=== PATIENT | female | born 1970 | race Caucasian/White ===

== ENCOUNTER 2022-04-15 07:30 | Outpatient (REF) | payer OTHER, SELFPAY ==
--- NOTE | ~2022-04-15 | MR_ITS ---
EXAMINATION: MR ANGIOGRAPHY BRAIN WITHOUT CONTRAST CLINICAL INFORMATION: Anesthesia of the skin. COMPARISON: Brain MRI 10/27/2019. TECHNIQUE: Three-dimensional [id number] MR angiogram of the head was performed without contrast. MIP reconstructions were generated in multiple orientations at the acquisition workstation. Multiple three-dimensional surface rendered images and maximum intensity projection images were generated on a dedicated 3-D lab workstation. Arterial stenoses are measured in accordance with NASCET criteria or similar method if applicable. FINDINGS: Intracranial internal carotid arteries are normal. Intradural vertebral artery segments and basilar artery are normal. Visualized portions of the anterior, middle, and posterior cerebral artery complexes are normal. No intracranial large vessel occlusion. No evidence of aneurysm or high flow vascular lesion. MR/MR angio head wo con IMPRESSION: Normal MR angiogram of the head.
== END 2022-04-15 07:31 | disposition home or self-care (01) ==
LOC: HO.MRI 07:30
PROVIDERS: Visit Provider Psychiatry & Neurology Neurology
DX: R20.0 Anesthesia of skin (principal); R20.2 Paresthesia of skin; I72.9 Aneurysm of unspecified site
CPT/HCPCS: 70544

== ENCOUNTER 2022-07-13 08:02 | Outpatient (REF) | payer OTHER, SELFPAY | END 2022-07-13 08:03 | disposition home or self-care (01) | LOC: HO.MDS 08:02 | PROVIDERS: Visit Provider Psychiatry & Neurology Neurology | DX: D50.9 Iron deficiency anemia, unspecified (principal); G25.81 Restless legs syndrome | CPT/HCPCS: 96365; J1756 ==

== ENCOUNTER 2022-07-20 07:35 | Outpatient (REF) | payer OTHER, SELFPAY | END 2022-07-20 07:36 | disposition home or self-care (01) | LOC: HO.MDS 07:35 | PROVIDERS: Visit Provider Psychiatry & Neurology Neurology | DX: D50.9 Iron deficiency anemia, unspecified (principal); G25.81 Restless legs syndrome | CPT/HCPCS: 96365; J1756 ==

== ENCOUNTER 2022-07-27 07:36 | Outpatient (REF) | payer OTHER, SELFPAY | END 2022-07-27 07:37 | disposition home or self-care (01) | LOC: HO.MDS 07:36 | PROVIDERS: Visit Provider Psychiatry & Neurology Neurology | DX: D50.9 Iron deficiency anemia, unspecified (principal); G25.81 Restless legs syndrome | CPT/HCPCS: 96365; J1756 ==

== ENCOUNTER 2022-08-03 07:38 | Outpatient (REF) | payer OTHER, SELFPAY | END 2022-08-03 07:39 | disposition home or self-care (01) | LOC: HO.MDS 07:38 | PROVIDERS: Visit Provider Psychiatry & Neurology Neurology | DX: D50.9 Iron deficiency anemia, unspecified (principal); G25.81 Restless legs syndrome | CPT/HCPCS: 96365; J1756 ==

== ENCOUNTER 2022-08-10 07:33 | Outpatient (REF) | payer OTHER, SELFPAY | END 2022-08-10 07:34 | disposition home or self-care (01) | LOC: HO.MDS 07:33 | PROVIDERS: Visit Provider Psychiatry & Neurology Neurology | DX: D50.9 Iron deficiency anemia, unspecified (principal); G25.81 Restless legs syndrome | CPT/HCPCS: 96365; J1756 ==

== ENCOUNTER → 2022-11-17 16:01 | Outpatient (REF) | payer OTHER, SELFPAY | LOC: HO.SL 16:01 | PROVIDERS: PCP Internal Medicine; Visit Provider Psychiatry & Neurology Neurology | DX: Z13.89 Encounter for screening for other disorder (principal) ==

== ENCOUNTER → 2022-12-28 09:10 | Outpatient (REF) | payer OTHER, SELFPAY | LOC: HO.SL 09:10 | PROVIDERS: PCP Internal Medicine; Visit Provider Psychiatry & Neurology Neurology | DX: Z13.89 Encounter for screening for other disorder (principal) ==

== ENCOUNTER 2025-06-10 07:21 | Outpatient (AMB) | payer OTHER, SELFPAY ==
--- NOTE | 2025-06-10 07:23 | MHC.OFFVIS ---
Vital Signs 06/10/25 07:32 Height 5 ft 5 in Weight 104 lb 4 oz BMI 17.3 BP 110/72 Blood Pressure Location Rt brachial Position Sitting Pulse 72 Pulse Source Pulse Oximeter Pulse Oximetry (%) 99 Oxygen Delivery Method Room Air Intake Visit Reasons: New leg pain/discomfort; RLS and insomina continue Intake Note: Leg pain and discomfort, RLS and follow up Insomnia last seen 2021 [employer] Required: No Accompanied by: Self / Same As Patient Allergies No Known Allergies Allergy (Verified 06/10/25 07:24) Medication List - Last Reconciled 06/10/25 by Michelle Swan MD acetaminophen (Tylenol Extra Strength) 500 mg PO Q6H PRN aspirin (Adult Low Dose Aspirin) 81 mg PO DAILY bimatoprost 0.03% (Latisse) 1 appl topical .[id number] biotin 500 mg PO DAILY cholecalciferol (vitamin D3) 400 mcg PO DAILY gabapentin 100 mg PO BID 90 days gabapentin 900 mg (3 x 300 mg) PO DAILY 90 days hydroxyzine HCl 25 mg PO BEDTIME 90 days melatonin 3 mg PO BEDTIME PRN multivitamin (Daily Multi-Vitamin tablet) 1 tab PO DAILY nfpepeni-nrtj-igihx-oreg-capry 100 mg-150 mg- 50 mg-150 mg 1,500 caps PO DAILY zinc acetate (Galzin) 50 mg PO DAILY HPI Comments Details: 54 y/o female comes for new symptoms of gen leg pain .she had a recent left shoulder surgery - impingement, rotator cuff and biceps tendon , bone spur . she is feeling better. she is restricted from Tennis for 1 year. she reports generalized leg pain - severe . It started in summer- this was different from RLS as she had pain when active. It is different from RLS, Bilateral - can be in different sites in the legs - she has tried activity which did not help. CT abdomen was normal Lumbar MRI- arthritis ( [facility]) she saw vascular and USG was negative . Urologist - for hematuria - cystoscopy [employer] Developer- small cyst left ovary , fibroid. she still gets her periods - irregular , she was tested for menopause - her hormones were normal . But she had heavy bleeding - in between her periods . Labs from February 2025- normal ESR CRP CBC CMP Hg was normal 12.7 History from 2021- 51y/o female calls for follow up of restless legs . she is on gabapentin 100mg bid -tid and 600mg qhs but still feels she tosses and turns during the night and has trouble staying asleep. she was given long acting gabapentin but was not approved by her insurance. she also took some iron supplements for 1 year and has increased her iron intake. About 7 months ago she woke up with left face tingling and numbness - eye to her chin and decreased hearing. She assume it was allergies but was very severe. SHe was seen by ENT and was normal. SHe was given prednisone course and it helped. The tingling and numbness have improved. No facial asymmetry. No headaches. MRI brain was normal - [facility]. 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 Usually falls asleep at 10pm she uses ambien sparingly .. [facility] Medical History (Updated 06/10/25 @ 08:25 by Michelle Swan MD) Leg pain, bilateral Polymyalgia Generalized pruritus Hypersomnia Snoring Insomnia Numbness and tingling of left side of face Insomnia Periodic limb movements of sleep Allergic rhinitis Family History Father Heart disease HTN (hypertension) COPD (chronic obstructive pulmonary disease) Mother Kidney disease Thyroid disease HTN (hypertension) Peripheral artery disease Social History Alcohol intake: current Patient Tobacco Use Status: Never used Tobacco Physical Exam Vital Signs: Last Vital Signs Pulse 72 06/10/25 07:32 BP 110/72 06/10/25 07:32 Pulse Ox 99 06/10/25 07:32 Oxygen Delivery Method Room Air 06/10/25 07:32 BMI result Body Mass Index 17.3 Const General: cooperative, comfortable and no acute distress Nutritional Appearance: average body habitus Orientation/consciousness: patient oriented x3 HEENT Head: Yes normal to inspection and Yes normocephalic Face and sinus: Yes normal facial exam Eyes Pupils: Equal, round and reactive pupils present Neck Other: tight muscles trapezius, levator Neuro Other: left shoulder limited range of motion post surgery General: patient oriented x3 and gait normal Cranial nerves: Yes CN's II-XII intact bilaterally, Yes Facial sensation intact/muscles of mastication intact, Yes Equal, round and reactive pupils present, Yes Bilaterally intact EOM present and Yes Nystagmus not present Gait exam (Neuro): Normal gait present Motor exam (neuro): 5/5 motor strength present throughout Deep tendon reflexes (DTR's): Right triceps reflex intensity grade: 2+, Left triceps reflex intensity grade: 2+, Rt Biceps (C5, C6): 2+, Left biceps reflex intensity grade: 2+, Right brachioradialis reflex intensity grade: 2+, Left brachioradialis reflex intensity grade: 2+, Right patellar reflex intensity grade: 2+ and Left patellar reflex intensity grade: 2+ Coordination: [id number] test normal Assessment & Plan Assessment & Plan (1) Leg pain, bilateral: Code(s): M79.604 - Pain in right leg; M79.605 - Pain in left leg Category: Medical (2) Insomnia: Code(s): G47.00 - Insomnia, unspecified Category: Medical (3) Periodic limb movements of sleep: Code(s): G47.61 - Periodic limb movement disorder Category: Medical (4) Restless legs syndrome (RLS): Code(s): G25.81 - Restless legs syndrome Category: Medical Plan ESR CRP normal - rules out polymyalgia rheumatica FH/O polymyalgia Rheumatica Gabapenitn 100mg bid gabapentin 900mg qhs Take extra gabpentin as needed will check her ferritin B12 tsh Vit D levels [place] Consider Rheumatology eval F/u gynec for possible perimenopausal symptoms Magnesium glycinate 400g qhs Orders: Orders TSH reflex Free T4 Today M35.3 - Polymyalgia rheumatica Vitamin D 25-OH (D2 and D3) Today M35.3 - Polymyalgia rheumatica Ferritin Today M35.3 - Polymyalgia rheumatica [place] Reflex Titer and Pattern Today M35.3 - Polymyalgia rheumatica Vitamin B12 and Folate Today M35.3 - Polymyalgia rheumatica Coding Level of Care Code Est Pt Level 4 (87754) Complex EM visit Add On G2211 Diagnoses Leg pain, bilateral M79.604; M79.605 Insomnia G47.00 Periodic limb movements of sleep G47.61 Restless legs syndrome (RLS) G25.81
[2025-06-10 07:32] VITALS: BP 110/72; PULSE 72; O2SAT 99; BMI 17.3
--- OUTSIDE RECORDS SUMMARY | 2025-06-10 07:46 | XMS_ITS | Data Portability ---
Author Organization [facility], [facility] Address [address] [place] [address] Care Team Providers Care Regional Trainer Name Role Phone VALENCIA ALDANA Primary Care Provider Assessment Encounter Date Assessment Date Assessment LastModified by Organization Details LastModified Time 06/12/2024 06/12/2024 A:Pt PROM scapti on decreased secondary to increased end range px, soreness c ER/IR passive stretches. No c/o increased px at the end of session. P:Continue with POC, progress as tolerated. sshamlall Not available 06/12/2024 17:19:10 07/05/2024 07/05/2024 A:Pt PROM improv ed significantly c decreased end range px. She is with functional improvements c available range. P:Continue with POC, progress as tolerated. sshamlall Not available 07/05/2024 17:30:55 07/16/2024 07/16/2024 Procedure/Date:l eft shoulder biceps tenodesis 05/29/2024 History: Doing well, no complications, still noting pain Exam: Wound benign, motion full Radiographs: none Clinical Status: Doing as expected postoperatively Work Status/Plan:not applicable Physical Therapy Status: home program at this point Medication Prescriptions: [none given] Plan/Follow up:[facility] weeks [facility] speech recognition first aid trainer software was used to create portions of this document. An attempt at proofreading has been made to minimize errors. Please call for corrections. mela Not available 07/16/2024 10:51:42 09/07/2024 09/07/2024 Dx:status post l eft shoulder decompression 05/29/2024 Interval History:so having pain with use, slow progress. SocHx: nonsmoker, nondrinker Past Medical/Surgical History/Meds/Allerg ies reviewed and charted ROS: negative Physical Exam: afebrile, vital signs stable, in no apparent distress, oriented to person/place/time. Gait symmetric. Skin intact without erythema. Heart RRR Lungs: clear Abdomen soft, nontender. leftSHOULDER: no redness, warmth, deformity. Range of motion full in all planes with no stiffness. Strength 5/5 all muscle groups. Apprehension negative. Impingement sign positive. Acromioclavicular joint nontender without irritability with cross body adduction. Neurovascular Exam wnl. Contralateral SHOULDER: no redness, warmth, deformity. Range of motion full in all planes with no stiffnes. Strength 5/5 all muscle groups. Apprehension negative. Impingement sign negative. Acromioclavicular joint nontender without irritability to cross body adduction. Neurovascular Exam wnl. New Studies: none Impression:status post decompression left shoulder with residual pain Plan: 1.patient reassured, continue home stretching, she did have a low-grade partial-thickness bursal tear that may need to be dealt with if she does not fully turn the corner, follow-up with me in 6-8 weeks, continue stretching, hold on strengthening [facility] speech recognition first aid trainer software was used to create portions of this document. An attempt at proofreading has been made to minimize errors. Please call for corrections. Not available 09/07/2024 10:49:41 10/29/2024 10/29/2024 Dx:Left shoulder partial thickness rotator cuff tear Interval History:The patient returns, MRI shows no definite rotator cuff tear, certainly no high-grade progression, no residual spurring. She still quite symptomatic. Now 5 months out from surgery. SocHx: nonsmoker, nondrinker Past Medical/Surgical History/Meds/Allerg ies reviewed and charted ROS: negative Physical Exam: afebrile, vital signs stable, in no apparent distress, oriented to person/place/time. Gait symmetric. Skin intact without erythema. Heart RRR Lungs: clear Abdomen soft, nontender. LeftSHOULDER: no redness, warmth, deformity. Range of motion full in all planes with no stiffness. Strength 5/5 all muscle groups. Apprehension negative. Impingement sign Positive. Acromioclavicular joint nontender without irritability with cross body adduction. Neurovascular Exam wnl. Contralateral SHOULDER: no redness, warmth, deformity. Range of motion full in all planes with no stiffnes. Strength 5/5 all muscle groups. Apprehension negative. Impingement sign negative. Acromioclavicular joint nontender without irritability to cross body adduction. Neurovascular Exam wnl. New Studies: MRI images reviewed as above Impression:Left shoulder persistently symptomatic partial thickness rotator cuff tear documented that arthroscopy Plan: 1.Based upon ongoing symptomatology, presence of a partial thickness tear, bursal sided, recommended arthroscopy with cuff debridement and repair. I told her that most patients who undergo decompression with a low-grade tear and a large spur experience stabilization of the tendon and recovery but in some cases pain persists. Follow-up in 3 months though invited her to call and schedule arthroscopy at her discretion. [facility] speech recognition first aid trainer software was used to create portions of this document. An attempt at proofreading has been made to minimize errors. Please call for corrections. Not available 10/29/2024 11:00:41 Plan of Treatment Reminders Order Date Submit Date Provider Last Modified By Organization Details Last Modified Time Details Appointments None record ed. Lab None record ed. Referral None record ed. Procedures None record ed. Surgeries None record ed. Imaging None record ed. Medication Orders None record ed. Patient TargetsNo targets recorded. Patient InstructionsNo instructions recorded. Reason for Referral None Reported. Results Created Date Observation Date Name Description Value Unit Range Abnormal Flag Note LastModifiedBy Organization Detail LastModifiedTime 06/06/20 24 06/06/2024 rell [place], 2 or more view http:/ [email or web address] ?Encry pted=s hAaTro YD8dLq bEUv6g %2BXZw aYqtaq 0bqfl% 2Fg9IQ a4ajBk vP9nXo QUaueC m3YtLR FvZlgJ JJ8mAn HZtai3 0k8020 AC0Kqa HSHV6a lKiQtr F INTERFACE [facility] [address], [place], [address], 06/06/2024 08:38:29 06/06/20 24 06/06/2024 XR, rell [facility], 2 or more view [email or web address] ?Encry pted=s hAaTro YD8dLq bEUv6g %2BXZw aYqtaq 0bqfl% 2Fg9IQ a4ajBk vP9nXo QUaueC m3YtLR FvZlgJ JJ8mAn HZtai3 3p3029 AC0Kqa HSHV6a lKiQtr MwF INTERFACE [facility] [address], [place], [address], 06/06/2024 08:38:32 10/23/19 25 10/20/2024 MRI, [facility], w/o contr ast [facility] Access ion Number : [id number] Name: Elvie Mcclure basillalito Salcedoa wendi Record Number : [id number] Date of : 1970 Date of Exam: 2024 Referr ing Physic sue: Marcellus Corley [address] [place] [address] Exam: MR Should er (C-) CPT 97256 - Left Room Descri ption: [facility] 3.0T MR Should er (C-) CPT 24063 CLINIC AL INDICA TION: Reason For Exam: Imping ement syndro me of left should er, , S/P LEFT SHLDR DECOMP RESSIO N, CONTIN UE PAIN, WEAKNE SS, EVAL FOR ROTATO R CUFF TEAR Reason For Exam: Imping ement syndro me of left should er, , S/P LEFT SHLDR DECOMP RESSIO N, CONTIN UE PAIN, WEAKNE SS, EVAL FOR ROTATO R CUFF TEAR Standa rd Depart ment Protoc ol TECHNI QUE: MRI of the left should er was perfor med withou t intrav enous contra st. COMPAR LOIDA: 12/30/19 24 FINDIN GS: AC joint: Patimilan t is status post interv al subacr omial decomp ressio n and partia l distal clavic ular resect ion. Trace amount of fluid signal within the subacr omial subdel toid bursa. Rotato r cuff: The supras pinatu s, infras pinatu s, teres minor and subsca pulari s tendon s are intact . Mild thicke johnnie, and interm ediate signal subsca pulari s tendin osis. There is normal muscle bulk. Glenoi d labrum and biceps tendon : On nonart hrogra phic evalua tion there is no eviden ce of displa sandra labral tear or para labral cyst. Biceps tendon is intact and the extra- articu lar segmen t is visual ized within the bicipi faye groove . Articu lar cartil age: Mild diffus e thinni ng of the glenoh umeral articu lar cartil age withou t focal defect . Bone: No eviden ce of fractu re, malali gnment or bone marrow contus ion. IMPRES BRIANA: Interv al subacr omial decomp ressio n. Mild fluid signal within the subacr omial subdel toid bursa which may reflec t underl vera bursit is Subsca pulari s tendin osis No eviden ce of rotato r cuff tear or tendon retrac tion Electr onical ly Signed By: Nils dawson [facility] ([facility]) [address], [place], [address], 10/24/2024 10:15:58 Result Notes Documentation Provider Name and Address Organization Details Recorded Time Mri, Shoulder, W/o Contrast : [facility] Accession Number: [id number] Patient Name: Alecia Mcclure Date of : 1970 Date of Exam: 10-20-2024 Referring Physician: Marcellus Barcenas [address] [place] [address] Exam: MR Shoulder (C-) CPT 87786 - Left Room Description: [facility] 3.0T MR Shoulder (C-) CPT 52063 CLINICAL INDICATION: Reason For Exam: Impingement syndrome of left shoulder, , S/P LEFT SHLDR DECOMPRESSION, CONTINUE PAIN, WEAKNESS, EVAL FOR ROTATOR CUFF TEAR Reason For Exam: Impingement syndrome of left shoulder, , S/P LEFT SHLDR DECOMPRESSION, CONTINUE PAIN, WEAKNESS, EVAL FOR ROTATOR CUFF TEAR Standard Department Protocol TECHNIQUE: MRI of the left shoulder was performed without intravenous contrast. COMPARISON: 12/30/2023 FINDINGS: AC joint: Patient is status post interval subacromial decompression and partial distal clavicular resection. Trace amount of fluid signal within the subacromial subdeltoid bursa. Rotator cuff: The supraspinatus, infraspinatus, teres minor and subscapularis tendons are intact. Mild thickening, and intermediate signal subscapularis tendinosis. There is normal muscle bulk. Glenoid labrum and biceps tendon: On nonarthrographic evaluation there is no evidence of displaced labral tear or para labral cyst. Biceps tendon is intact and the extra-articular segment is visualized within the bicipital groove. Articular cartilage: Mild diffuse thinning of the glenohumeral articular cartilage without focal defect. Bone: No evidence of fracture, malalignment or bone marrow contusion. IMPRESSION: Interval subacromial decompression. Mild fluid signal within the subacromial subdeltoid bursa which may reflect underlying bursitis Subscapularis tendinosis No evidence of rotator cuff tear or tendon retraction Electronically Signed By: Nils HANDLEY [facility] 10/24/2024 10:15:58 Problems Name Problem SNOMED Code Status Onset Date Resolution Date Notes Provider Name and Address Organization Details Recorded Time No complaints 219598707 Active Status : 'I'; Not Available [facility] 4 09:11:51 Problem Notes None recorded. Procedures Surgical History Date Name Laterality Status Provider Name and Address Organization Details Recorded Time 4 52774 Therapeutic Exercise (1:1) completed Melinda Levin, BONING ROOM WORKER [address], [place], [address], [facility] 07/05/2024 15:04:42 4 30973: Manual therapy completed Melinda Levin, BONING ROOM WORKER [address], [place], [address], [facility] 07/05/2024 15:04:42 4 39632 Therapeutic Exercise (1:1) cancelled Melinda Shamlall, BONING ROOM WORKER [address], [place], [address], [facility] 07/01/2024 20:02:21 4 75193: Hot or Cold Pack cancelled Melinda Shamlall, BONING ROOM WORKER [address], [place], [address], [facility] 07/01/2024 20:02:21 4 10984: Manual therapy cancelled Melinda Shamlall, BONING ROOM WORKER [address], [place], [address], [facility] 07/01/2024 20:02:21 4 32761 Therapeutic Exercise (1:1) completed Melinda Shamlall, BONING ROOM WORKER [address], [place], [address], [facility] 06/12/2024 16:27:51 4 15566: Hot or Cold Pack completed Melinda Shamlall, BONING ROOM WORKER [address], [place], [address], [facility] 06/12/2024 17:17:26 4 19279: Manual therapy completed Melinda Shamlall, BONING ROOM WORKER [address], [place], [address], [facility] 06/12/2024 16:27:51 4 81298 Therapeutic Exercise (1:1) completed Verito Knight DPT [address], [place], [address], [facility] 06/07/2024 13:07:10 4 40014: Hot or Cold Pack completed Verito Knight DPT [address], [place], [address], [facility] 06/07/2024 13:07:10 4 52204: Manual therapy completed Verito Knight DPT [address], [place], [address], [facility] 06/07/2024 13:07:10 4 31198 Therapeutic Exercise (1:1) completed Verito Knight DPT [address], [place], [address], [facility] 06/05/2024 13:57:23 4 91768: Hot or Cold Pack completed Verito Knight DPT [address], [place], [address], [facility] 06/05/2024 13:57:45 4 58259: Manual therapy completed Verito Knight DPT [address], [place], [address], [facility] 06/05/2024 13:59:28 4 08108 Therapeutic Exercise (1:1) completed Verito Knight DPT [address], [place], [address], [facility] 06/01/2024 13:46:43 4 75615: Low complexity PT Eval completed Verito Knight DPT [address], [place], [address], [facility] 06/01/2024 13:46:44 4 75240 Therapeutic Exercise (1:1) completed Verito Knight DPT [address], [place], [address], [facility] 02/20/2024 18:30:28 4 03237: Hot or Cold Pack completed Verito Knight DPT [address], [place], [address], [facility] 02/20/2024 17:02:18 4 87525 Therapeutic Exercise (1:1) completed Verito Knihgt DPT [address], [place], [address], [facility] 02/08/2024 16:30:48 4 64453: Hot or Cold Pack completed Verito Knight DPT [address], [place], [address], [facility] 02/08/2024 17:31:31 4 39800 Therapeutic Exercise (1:1) completed Verito Knight DPT [address], [place], [address], [facility] 02/01/2024 18:02:52 4 70285: Hot or Cold Pack completed Verito Knight DPT [address], [place], [address], [facility] 02/01/2024 18:03:53 4 06420 Therapeutic Exercise (1:1) completed Verito Knight DPT [address] [facility] [place], [place], [address], [facility] 01/30/2024 17:11:42 4 12984: Low complexity PT Eval completed Verito Knight DPT [address] [facility] [place], [place], [address], [facility] 01/30/2024 17:16:04 4 Sports Shoulder 4&1 completed Marcellus Barcenas MD [address] [facility] [place], [place], [address], [facility] 01/09/2024 10:55:25 4 Other completed DAVIS TERRY [facility] 01/09/2024 10:38:48 Imaging Results None recorded. Procedure Notes None recorded. Medical Equipment None Reported. Allergies Allergen ID Allergen Name Allergen Category Reaction Reaction Severity Criticality Documentation Date Start Date Code Code System Note Provider Name and Address Organization Details Recorded Time 786662 iodine medicatio n Not available Not available Not available 09/26/20232018 5933 RxNorm DAVIS lynn [facility] 4 10:38:48 520198 latex environme nt,medica tion Not available Not available Not available 09/26/20232018 33203 91 RxNorm DAVIS lynn [facility] 10:38:48 Medications Name Sig Start Date Stop Date Status Note LastModified by Organization Details LastModified Time gabapentin 300 mg capsule 3 capsules every day by oral route. active Not Available Not Available No t Available hydroxyzine HCl 25 mg tablet 1 tablet every day by oral route. active Not Available Not Available No t Available oxycodone 5 mg tablet Take 1 tablet every 4-6 hours by oral route as needed for 5 days, for postopera tive pain. 09/07 completed Not Available Not Available Not Available melatonin Melatonin 1MG Capsule 2012 active Statu s: 'Curr ent'; Not Available Not Available Not Available Melatonin (with B6) active Not Available Not Available No t Available Vitals Date Recorded Body height Body mass index (BMI) Body weight Provider Name and Address Organization Details Last Updated DateTime 09/07/2024 165.1 cm 17.8 kg/m2 77415.38 g KAYLIA L'HEUREUX [facility] 09/07/2024 09:05:08 Date Recorded Body height Body mass index (BMI) Body weight Provider Name and Address Organization Details Last Updated DateTime 10/29/2024 165.1 cm 17.8 kg/m2 59898.38 g KARYN HANDLEY [facility] 10/29/2024 10:05:25 Date Recorded Body height Body mass index (BMI) Body weight Provider Name and Address Organization Details Last Updated DateTime 07/16/2024 165.1 cm 17.8 kg/m2 59262.38 g KARYN HANDLEY [facility] 07/16/2024 09:05:58 Social History Question Answer Notes LastModified by Cas[employer] Details LastModified Time Tobacco Smoking Status Never Smoker DAVIS MARA lynn [facility] 01/09/2024 10:38:48 What Is Your Relationship Status? [email or web address] Information not available 01/09/2024 Sex: Unknown Functional Status Question Answer Note LastModified by Cas[employer] Details LastModified Time How many times per week do you consume alcohol? 3-4 times per week [email or web address] Information not available 01/09/2024 Do you use any illicit or recreational drugs? No [email or web address] Information not available 09/05/2024 Do you or have you ever used e-cigarettes or vape? Never used electronic cigarettes [email or web address] Information not available 01/09/2024 Mental Status None recorded. Family History Nothing Reported. Medical History Condition Response Allergies/Hayfever Y Coronary Artery Disease N Anxiety/Depression N Breathing or lung disorders N Emphysema N Nerve Disorders N Thyroid Problems N COPD N Pacemaker N Anemia N Kidney/Bladder Problems N Vascular Disease N Heart Trouble N Heart Attack (AR) N Gastrointestinal Disease N Cholesterol N Diabetes N Autoimmune disease N Bleeding Disorder N Inflammatory Joint disease N Orthotics N Arthritis Y Seizures/Epilepsy N Blood Clot N AIDS/HIV N Congestive Heart Failure (CHF) N Acid Reflux (GERD) N Cancer N Stroke N Asthma N Circulation Problems Y Peripheral Vascular Disease N Sleep Apnea N Hepatitis N Heart Disease N Rheumatoid Arthritis N Arrhythmia N Pulmonary Embolism N Headaches N Fibromyalgia N Hypertension N Osteoporosis N Gynecological HistoryNo gynecological history recorded. Obstetrics History GPAL:G 0 P 0 0 0 0 Past Encounters Encounter ID Performer Location Encounter Start Date Encounter Closed Date Diagnosis/Indication Diagnosis SNOMED-CT Code Diagnosis ICD10 Code Diagnosis IMO Codes Diagnosis Note [id number] MD [place] [address] 01/09/2024 10:33:02 01/09/2024 10:56:37 Pain of left shoulder joint 4071512078 3946540 M25.952 [id number] [place] [address] 01/30/2024 16:17:28 01/30/2024 17:24:40 Tendinitis of rotator cuff tendon 574787360 M67.121 [id number] [place] [address] 02/01/2024 17:01:48 02/01/2024 18:04:11 Tendinitis of rotator cuff tendon 503140195 M67.670 [id number] AMADOU Garzon [place] [address] [place] [address] 02/08/2024 16:30:03 02/08/2024 18:52:55 Tendinitis of rotator cuff tendon 536973675 M67.870 [id number] AMADOU Garzon PT [address] [place] [address] 02/20/2024 16:59:56 02/20/2024 18:30:52 Tendinitis of rotator cuff tendon 484131857 M67.003 [id number] Marcellus Barcenas MD [facility] [address] [place] [address] 03/08/2024 14:03:16 04/03/2024 12:13:07 Pain of left shoulder joint 1158161037 3610580 M25.505 [id number] Marcellus Barcenas MD [facility] [address] [place] [address] 04/18/2024 17:24:37 05/10/2024 09:58:28 Pain of left shoulder joint 9896462962 2752184 M25.032 [id number] AMADOU Garzon PT [address] [place] [address] 06/01/2024 12:58:45 06/01/2024 14:02:48 Impingement syndrome of left shoulder region 0382488345 89625 M75.42 [id number] DARYN Gaston Clinical [address] [place] [address] 06/06/2024 08:27:54 07/02/2024 15:56:29 Pain of left shoulder joint 1352441306 9871119 M25.512 [id number] AMADOU Garzon [place] [address] [place] [address] 06/05/2024 13:04:10 06/05/2024 13:59:58 Impingement syndrome of left shoulder region 0729576942 49161 M75.42 [id number] AMADOU Garzon PT [address] [place] [address] 06/07/2024 13:00:11 06/07/2024 14:17:29 Impingement syndrome of left shoulder region 1467008693 98344 M75.42 [id number] SERGE Dean PT [address] [place] [address] 06/12/2024 16:30:08 06/13/2024 15:49:29 Impingement syndrome of left shoulder region 5877430458 54057 M75.42 [id number] SERGE Dean PT [address] [place] [address] 07/05/2024 16:29:34 07/06/2024 13:43:16 Impingement syndrome of left shoulder region 6342337895 62013 M75.42 [id number] Marcellus Barcenas MD [facility] [address] [place] [address] 07/16/2024 08:51:44 08/06/2024 08:19:44 Impingement syndrome of right shoulder region 4946297693 72044 M75.41 [id number] MD VINICIO Weiss [address] [place] [address] 09/07/2024 09:00:33 09/21/2024 08:35:42 Impingement syndrome of left shoulder region 5284005498 25168 M75.42 [id number] MD VINICIO Weiss Clinical [address] [place] [address] 10/29/2024 10:00:16 11/07/2024 08:32:51 Impingement syndrome of left shoulder region 2715491444 50768 M75.42 [id number] Health Concerns Section Related Observation LastModified by Organization Detai ls LastModified Time None Recorded Concern Status LastModified by Organization Details LastModified Time None Recorded Advance Directives Directive None Recorded Payers Insurance Date Sequence Insurance Name Policy Number Policy Delarosa Covered Member ID Delarosa Member ID Guarantor Name 11/07/2024 1 [facility] [id number] Alecia Mcclure [id number] Alecia Mcclure Notes Date Note Type Note Provider Name and Address Organization Details Recorded Time 06/12/2024 text/html Pt reported 5/10 px coming into therapy. She stated her shoulder feels very sore. Unable to sleep through the night. Pt noted she did not do any home exercises yesterday secondary to increased soreness. Melinda Levin, [employer]ING RO[employer] WORK[employer] [address], [place], [address], [facility] 06/12/2024 17:19:39 07/05/2024 text/html Pt stated increased soreness, she still is unable to sleep through the night secondary to increased px. I am able to wash my hair c both hands now, but still not able to lift anything. Melinda Levin, BONING ROOM WORKER [address], [place], [address], [facility] 07/05/2024 17:31:28 OBGyn Episode No OBEpisode recorded.
--- OUTSIDE RECORDS SUMMARY | 2025-06-10 07:46 | XMS_ITS | Continuity of Care Document ---
Author Organization [facility], Main Office Address [address] [facility] [address] [place] [address] Care Team Providers Care Jewelry Repairer Name Role Phone VALENCIA HURST Primary Care Provider Unavail able [facility] Referring Provider VIKRAM MANUEL Green Building Engineer ANDREIA MAYA Referring Provider [phone] MICHELE MATOS Vascular Surgeon ARCI PANDYA Neurologist OCATHRYN ESCOTO Referring Provider DAISY MCDONALD Referring Provider HAYLEE DE SANTIAGO Orthopedic Surgeon MALLORIE BALDERAS Referring Provider Assessment Encounter Date Assessment Date Assessment LastModified by Organization Details LastModified Time 03/19/2025 03/19/2025 Note was amended after her CT scan results were received. supa Not available 04/20/2025 17:12:01 Plan of Treatment Reminders Order Date Submit Date Provider Last Modified By Organization Details Last Modified Time Details Appointments None recorded. Lab urinalysis complete, reflex culture 2024 025 [facility] (Centralized Electronic Ordering - All Locations), Patient Can Go To The Location Of Their Choice, [address] 12:05:56 lh + FSH, serum 2024 025 [facility] (Centralized Electronic Ordering - All Locations), Patient Can Go To The Location Of Their Choice, [address] 12:05:57 CK (creatine kinase), total, serum 2024 [place] [facility] ([facility] Ordering - All Locations), Patient Can Go To The Location Of Their Choice, 12:05:58 magnesium, serum or plasma 2024 [place] [facility] ([facility] Ordering - All Locations), Patient Can Go To The Location Of Their Choice, 12:05:59 CBC w/ auto diff 2024 [place] [facility] ([facility]ized [facility] Ordering - All Locations), Patient Can Go To The Location Of Their Choice, 12:05:55 inflammatio n panel, serum or plasma 2024 [place] [facility] ([facility] Ordering - All Locations), Patient Can Go To The Location Of Their Choice, 12:05:57 CMP, serum or plasma 2024 [place] [facility] ([facility] Order[facility] - All Locations), Patient Can Go To The Location Of Their Choice, 12:05:55 Referral None recorded. Procedures None recorded. Surgeries None recorded. Imaging CT, abdomen + pelvis, w/ contrast - Lower quadrant abdominal pain, changing menses and suprapubic tenderness. R/o mass. 2024 [facility], [address], [address], [place], [address], 14:36:57 Medication Orders None recorded. Patient TargetsNo targets recorded. Patient InstructionsNo instructions recorded. Reason for Referral None Reported. Results Created Date Observation Date Name Description Value Unit Range Abnormal Flag Note LastModifiedBy Organization Detail LastModifiedTime 03/20/2003/20/2025 CMP14 +EGFR glucose 87 mg/dL 70-99 normal Not Available [facility] ([facility]) [address] [facility], [place], [address], 03/22/2025 12:05:55 03/20/2003/20/2025 CMP14 +EGFR BUN 14 mg/dL 6-24 normal Not Available [facility] ([facility]) [address] [place], [address], 03/22/2025 12:05:55 03/20/20 25 03/20/2025 CMP14 +EGFR creatinine 0.80 mg/dL 0.57-1 .00 normal Not Available [facility] ([facility]) [address] [place], [address], 03/22/2025 12:05:55 03/20/2003/20/2025 CMP14 +EGFR eGFR 86 mL/mi n/1.7 3 >59 normal Not Available [facility] ([facility]) [address] [facility], [place], [address], 03/22/2025 12:05:55 03/20/2003/20/2025 CMP14 +EGFR BUN/creatini ne ratio 18 9-23 normal Not Available [facility] ([facility]) [address] [place], [address], 03/22/2025 12:05:55 03/20/2003/20/2025 CMP14 +EGFR sodium 139 mmol/ L 134-14 4 normal Not Available [facility] ([facility]) [address] [place], [address], 03/22/2025 12:05:55 03/20/2003/20/2025 CMP14 +EGFR potassium 5.3 mmol/ L 3.5-5. 2 above high normal Not Available [facility] ([facility]) [address] [place], [address], 03/22/2025 12:05:55 03/20/2003/20/2025 CMP14 +EGFR chloride 102 mmol/ L 96-106 normal Not Available [facility] ([facility]) [address] [place], [address], 03/22/2025 12:05:55 03/20/20 25 03/20/2025 CMP14 +EGFR carbon dioxide, total 23 mmol/ L 20-29 normal Not Available [facility] ([facility]) [address] [facility] [place], [address], 03/22/2025 12:05:55 03/20/20 25 03/20/2025 CMP14 +EGFR calcium 9.6 mg/dL 8.7-10 .2 normal Not Available [facility] ([facility]) [address] [facility] [place], [address], 03/22/2025 12:05:55 03/20/2003/20/2025 CMP14 +EGFR protein, total 6.4 g/dL 6.0-8. 5 normal Not Available [facility] ([facility]) [address] [place], [address], 03/22/2025 12:05:55 03/20/20 25 03/20/2025 CMP14 +EGFR albumin 4.4 g/dL 3.8-4. 9 normal Not Available [facility] ([facility]) [address] [place], [address], 03/22/2025 12:05:55 03/20/20 25 03/20/2025 CMP14 +EGFR globulin, total 2.0 g/dL 1.5-4. 5 Not Available [facility] ([facility]) [address] [place], [address], 03/22/2025 12:05:55 03/20/2003/20/2025 CMP14 +EGFR bilirubin, total 0.6 mg/dL 0.0-1. 2 normal Not Available [facility] ([facility]) [address] [place], [address], 03/22/2025 12:05:55 03/20/20 25 03/20/2025 CMP14 +EGFR alkaline phosphatase 20 IU/L 44-121 below low normal Not Available [facility] ([facility]) [address] [place], [address], 03/22/2025 12:05:55 03/20/20 25 03/20/2025 CMP14 +EGFR AST (SGOT) 18 IU/L 0-40 normal Not Available [facility] ([facility]) [address] [place], [address], 03/22/2025 12:05:55 03/20/2003/20/2025 CMP14 +EGFR ALT (SGPT) 14 IU/L 0-32 normal Not Available [facility] ([facility]) [address] [place], [address], 03/22/2025 12:05:55 03/20/20 25 03/20/2025 CBC WITH DIFFE RENTI AL/PL ATELE T WBC 5.8 x10e3 /uL 3.4-10 .8 normal Not Available [facility] ([facility]) [address] [place], [address], 03/22/2025 12:05:55 03/20/20 25 03/20/2025 CBC WITH DIFFE RENTI AL/PL ATELE T RBC 4.26 x10e6 /uL 3.77-5 .28 normal Not Available [facility] ([facility]) [address] [place], [address], 03/22/2025 12:05:55 03/20/2003/20/2025 CBC WITH DIFFE RENTI AL/PL ATELE T hemoglobin 12.7 g/dL 11.1-1 5.9 normal Not Available [facility] ([facility]) [address] [place], [address], 03/22/2025 12:05:55 03/20/20 25 03/20/2025 CBC WITH DIFFE RENTI AL/PL ATELE T hematocrit 38.5 % 34.0-4 6.6 normal Not Available [facility] ([facility]) [address] [facility], [place], [address], 03/22/2025 12:05:55 03/20/20 25 03/20/2025 CBC WITH DIFFE RENTI AL/PL ATELE T MCV 90 fL 79-97 normal Not Available [facility] ([facility]) [address] [facility], [place], [address], 03/22/2025 12:05:55 03/20/20 25 03/20/2025 CBC WITH DIFFE RENTI AL/PL ATELE T MCH 29.8 pg 26.6-3 3.0 normal Not Available [facility] ([facility]) [address] [facility], [place], [address], 03/22/2025 12:05:55 03/20/20 25 03/20/2025 CBC WITH DIFFE RENTI AL/PL ATELE T MCHC 33.0 g/dL 31.5-3 5.7 normal Not Available [facility] ([facility]) [address] [place], [address], 03/22/2025 12:05:55 03/20/20 25 03/20/2025 CBC WITH DIFFE RENTI AL/PL ATELE T RDW 13.0 % 11.7-1 5.4 Not Available [facility] ([facility]) [address] [place], [address], 03/22/2025 12:05:55 03/20/20 25 03/20/2025 CBC WITH DIFFE RENTI AL/PL ATELE T platelets 222 x10e3 /uL 150-45 0 normal Not Available [facility] ([facility]) [address] [place], [address], 03/22/2025 12:05:55 03/20/20 25 03/20/2025 CBC WITH DIFFE RENTI AL/PL ATELE T neutrophils 58 % not estab. normal Not Available [facility] ([facility]) [address] [facility], [place], [address], 03/22/2025 12:05:55 03/20/20 25 03/20/2025 CBC WITH DIFFE RENTI AL/PL ATELE T lymphs 32 % not estab. normal Not Available [facility] ([facility]) [address] [facility], [place], [address], 03/22/2025 12:05:55 03/20/20 25 03/20/2025 CBC WITH DIFFE RENTI AL/PL ATELE T monocytes 8 % not estab. normal Not Available [facility] ([facility]) [address] [facility], [place], [address], 03/22/2025 12:05:55 03/20/20 25 03/20/2025 CBC WITH DIFFE RENTI AL/PL ATELE T eos 1 % not estab. normal Not Available [facility] ([facility]) [address] [facility], [place], [address], 03/22/2025 12:05:55 03/20/20 25 03/20/2025 CBC WITH DIFFE RENTI AL/PL ATELE T basos 1 % not estab. normal Not Available [facility] ([facility]) [address] [facility], [place], [address], 03/22/2025 12:05:55 03/20/20 25 03/20/2025 CBC WITH DIFFE RENTI AL/PL ATELE T immature cells INVENTORY SPECIALIST Not Available [facility] ([facility]) [address] [place], [address], 03/22/2025 12:05:55 03/20/20 25 03/20/2025 CBC WITH DIFFE RENTI AL/PL ATELE T neutrophils (absolute) 3.4 x10e3 /uL 1.4-7. 0 normal Not Available [facility] ([facility]) [address] [place], [address], 03/22/2025 12:05:55 03/20/20 25 03/20/2025 CBC WITH DIFFE RENTI AL/PL ATELE T lymphs (absolute) 1.8 x10e3 /uL 0.7-3. 1 normal Not Available [facility] ([facility]) [address] [facility], [place], [address], 03/22/2025 12:05:55 03/20/20 25 03/20/2025 CBC WITH DIFFE RENTI AL/PL ATELE T monocytes(ab solute) 0.5 x10e3 /uL 0.1-0. 9 normal Not Available [facility] ([facility]) [address] [facility], [place], [address], 03/22/2025 12:05:55 03/20/20 25 03/20/2025 CBC WITH DIFFE RENTI AL/PL ATELE T eos (absolute) 0.1 x10e3 /uL 0.0-0. 4 normal Not Available [facility] ([facility]) [address] [facility], [place], [address], 03/22/2025 12:05:55 03/20/2003/20/2025 CBC WITH DIFFE RENTI AL/PL ATELE T baso (absolute) 0.1 x10e3 /uL 0.0-0. 2 normal Not Available [facility] ([facility]) [address] [facility], [place], [address], 03/22/2025 12:05:55 03/20/2003/20/2025 CBC WITH DIFFE RENTI AL/PL ATELE T immature granulocytes 0 % not estab. Not Available [facility] ([facility]) [address] [facility], [place], [address], 03/22/2025 12:05:55 03/20/20 25 03/20/2025 CBC WITH DIFFE RENTI AL/PL ATELE T immature grans (abs) 0.0 x10e3 /uL 0.0-0. 1 Not Available [facility] ([facility]) [address], [place], [address], 03/22/2025 12:05:55 03/20/20 25 03/20/2025 CBC WITH DIFFE RENTI AL/PL ATELE T NRBC INVENTORY SPECIALIST Not Available [facility] ([facility]) [address], [place], [address], 03/22/2025 12:05:55 03/20/20 25 03/20/2025 CBC WITH DIFFE RENTI AL/PL ATELE T hematology comments: INVENTORY SPECIALIST Not Available [facility] ([facility]) [address], [place], [address], 03/22/2025 12:05:55 03/20/20 25 03/20/2025 UA/M W/RFL X CULTU RE ROUTI NE specific gravity 1.020 1.005- 1.030 normal Not Available [facility] ([facility]) [address] [facility], [place], [address], 03/22/2025 12:05:56 03/20/20 25 03/20/2025 UA/M W/RFL X CULTU RE ROUTI NE pH 6.0 5.0-7. 5 normal Not Available [facility] ([facility]) [address] [facility], [place], [address], 03/22/2025 12:05:56 03/20/20 25 03/20/2025 UA/M W/RFL X CULTU RE ROUTI NE urine-color Yellow yellow Not Available [facility] ([facility]) [address] [facility], [place], [address], 03/22/2025 12:05:56 03/20/20 25 03/20/2025 UA/M W/RFL X CULTU RE ROUTI NE appearance Clear clear Not Available [facility] ([facility]) [address] [facility], [place], [address], 03/22/2025 12:05:56 03/20/20 25 03/20/2025 UA/M W/RFL X CULTU REVASU NE WBC esterase Trace negati ve abnormal Not Available [facility] ([facility]) [address] [place], [address], 03/22/2025 12:05:56 03/20/20 25 03/20/2025 UA/M W/RFL X CULTMyke REVASU NE protein 2+ negati ve/tra ce abnormal Not Available [facility] ([facility]) [address] [place], [address], 03/22/2025 12:05:56 03/20/20 25 03/20/2025 UA/M W/RFL X CULTVASU AVILA NE glucose Negati ve negati ve Not Available [facility] ([facility]) [address] [place], [address], 03/22/2025 12:05:56 03/20/20 25 03/20/2025 UA/M W/RFL X CULTMyke REVASU NE ketones Negati ve negati ve Not Available [facility] ([facility]) [address] [place], [address], 03/22/2025 12:05:56 03/20/20 25 03/20/2025 UA/M W/RFL X CULTVASU AVILA NE occult blood 1+ negati ve abnormal Not Available [facility] ([facility]) [address] [place], [address], 03/22/2025 12:05:56 03/20/20 25 03/20/2025 UA/M W/RFL X CULTVASU AVILA NE bilirubin Negati ve negati ve Not Available [facility] ([facility]) [address] [place], [address], 03/22/2025 12:05:56 03/20/20 25 03/20/2025 UA/M W/RFL X CULTU RE, ROUTI NE urobilinogen ,semi-qn 0.2 mg/dL 0.2-1. 0 normal Not Available [facility] ([facility]) [address] [facility], [place], [address], 03/22/2025 12:05:56 03/20/20 25 03/20/2025 UA/M W/RFL X CULTU RE, ROUTI NE nitrite, urine Negati ve negati ve Not Available [facility] ([facility]) [address] [facility], [place], [address], 03/22/2025 12:05:56 03/20/20 25 03/20/2025 UA/M W/RFL X CULTU RE, ROUTI NE microscopic examination See below: Micro scopi c was indic ated and was perfo rmed. Not Available [facility] ([facility]) [address] [facility], [place], [address], 03/22/2025 12:05:56 03/20/20 25 03/20/2025 UA/M W/RFL X CULTU RE, ROUTI NE microscopic examination INVENTORY SPECIALIST Not Available [facility]) [address] [facility], [place], [address], 03/22/2025 12:05:56 03/20/20 25 03/21/2025 UA/M W/RFL X CULTU RE, ROUTI NE WBC 11-30 /hpf 0 - 5 abnormal Not Available [facility] ([facility]) [address] [place], [address], 03/22/2025 12:05:56 03/20/20 25 03/21/2025 UA/M W/RFL X CULTU RE, ROUTI NE RBC 11-30 /hpf 0 - 2 abnormal Not Available [facility] ([facility]) [address] [place], [address], 03/22/2025 12:05:56 03/20/20 25 03/21/2025 UA/M W/RFL X CULTU RE, ROUTI NE epithelial cells (non renal) 0-10 /hpf 0 - 10 Not Available [facility] ([facility]) [address] [facility], [place], [address], 03/22/2025 12:05:56 03/20/20 25 03/21/2025 UA/M W/RFL X CULTU RE, ROUTI NE epithelial cells (renal) INVENTORY SPECIALIST Not Available [facility] ([facility]) [address] [facility], [place], [address], 03/22/2025 12:05:56 03/20/20 25 03/21/2025 UA/M W/RFL X CULTU RE, ROUTI NE casts None seen /lpf none seen Not Available [facility] ([facility]) [address] [facility], [place], [address], 03/22/2025 12:05:56 03/20/20 25 03/21/2025 UA/M W/RFL X CULTU RE, ROUTI NE cast type INVENTORY SPECIALIST Not Available [facility] ([facility]) [address] [facility], [place], [address], 03/22/2025 12:05:56 03/20/20 25 03/21/2025 UA/M W/RFL X CULTU RE, ROUTI NE crystals INVENTORY SPECIALIST Not Available [facility] ([facility]) [address] [place], [address], 03/22/2025 12:05:56 03/20/20 25 03/21/2025 UA/M W/RFL X CULTU RE, ROUTI NE crystal type INVENTORY SPECIALIST Not Available [facility] ([facility]) [address] [place], [address], 03/22/2025 12:05:56 03/20/20 25 03/21/2025 UA/M W/RFL X CULTU RE, ROUTI NE mucus threads INVENTORY SPECIALIST Not Available [facility] ([facility]) [address] [facility], [place], [address], 03/22/2025 12:05:56 03/20/20 25 03/21/2025 UA/M W/RFL X CULTU RE, ROUTI NE bacteria None seen none seen/f ew Not Available [facility] ([facility]) [address] [facility], [place], [address], 03/22/2025 12:05:56 03/20/20 25 03/21/2025 UA/M W/RFL X CULTU RE, ROUTI NE yeast INVENTORY SPECIALIST Not Available [facility] ([facility]) [address] [facility], [place], [address], 03/22/2025 12:05:56 03/20/20 25 03/21/2025 UA/M W/RFL X CULTU RE, ROUTI NE trichomonas INVENTORY SPECIALIST Not Available [facility] ([facility]) [address] [facility], [place], [address], 03/22/2025 12:05:56 03/20/20 25 03/21/2025 UA/M W/RFL X CULTU RE, ROUTI NE comment INVENTORY SPECIALIST Not Available [facility] ([facility]) [address] [facility], [place], [address], 03/22/2025 12:05:56 03/20/20 25 03/21/2025 UA/M W/RFL X CULTU RE, ROUTI NE urinalysis reflex Commen t This speci men has refle xed to a Urine Cultu re. Not Available [facility] ([facility]) [address] [place], [address], 03/22/2025 12:05:56 03/20/20 25 03/22/2025 UA/M W/RFL X CULTU RE, ROUTI NE urine culture, routine Final report Not Available [facility] ([facility]) [address] [place], [address], 03/22/2025 12:05:56 03/20/2003/22/2025 UA/M W/RFL X CULTU RE, ROUTI NE result 1 COMMEN T Cultu re shows less than 10,00 0 colon y formi ng units of bacte terence per gustavo liter of urine . This colon y count is not gener ally consi dered to be clini nelly signi toma t. Not Available [facility] ([facility]) [address] [place], [address], 03/22/2025 12:05:56 03/20/2003/21/2025 FSH AND LH LH 5.3 mIU/m L normal Adult Femal e Range Folli cular phase 2.4 - 12.6 Ovula tion phase 14.0 - 95.6 Lutea l phase 1.0 - 11.4 Postm enopa usal 7.7 - 58.5 Not Available [facility] ([facility]) [address] [place], [address], 03/22/2025 12:05:57 03/20/2003/21/2025 FSH AND LH FSH 4.6 mIU/m L Adult Femal e Range Folli cular phase 3.5 - 12.5 Ovula tion phase 4.7 - 21.5 Lutea l phase 1.7 - 7.7 Postm enopa usal 25.8 - 134.8 Not Available [facility] ([facility]) [address] [place], [address], 03/22/2025 12:05:57 03/20/2003/21/2025 ESR-W ES+CR P sedimentatio n rate-westerg joey 2 mm/HR 0-40 normal Not Available [facility] ([facility]) [address] [place], [address], 03/22/2025 12:05:57 03/20/20 25 03/21/2025 ESR-W ES+CR P C-reactive protein, quant 1 mg/L 0-10 normal Not Available [facility] ([facility]) [address] [facility], [place], [address], 03/22/2025 12:05:57 03/20/20 25 03/21/2025 CREAT INE KINAS E,TOT AL creatine kinase,total 80 U/L 32-182 normal Not Available [facility]) [address] [facility], [place], [address], 03/22/2025 12:05:58 03/20/2003/21/2025 MAGNE SIUM magnesium 2.1 mg/dL 1.6-2. 3 normal Not Available [facility] ([facility]) [address] [facility], [place], [address], 03/22/2025 12:05:59 03/29/2003/29/2025 CT, abdom en + pelvi s, w/ contr ast CT Abd/Pe lvis W/ IV + Oral Contra st Reason : R10.30 LOWER ABDOMI NAL PAIN RO MASS TECHNI QUE: Spiral CT throug h the abdome n and pelvis with IV contra st format mary in 3 planes . 100 cc of Isovue 300 was admini stered intrav enousl y. This study was perfor med with oral contra st. Weight -based protoc ol using automa tic tube modula tion was used to optimi ze exposu re parame ters. CTDIvo l Body: 4.72 mGy, DLP Body: 215 mGy*cm . COMPAR LOIDA: 2012 FINDIN GS: Procurement Manager View Findin gs, Lines and Tubes: None. Visual ized Chest: Lung bases are clear. No pleura l effusi on. The heart is normal in size. No perica rdial effusi on. Diaphr agm: Normal . Liver: Multip le subcen timete r circum scribe d low-de nsity lesion s likely repres ent cysts (in the absenc e of known malign carrillo). Gallbl adder: No CT eviden ce of gallbl adder pathol ogy. Bile ducts: No biliar y ductal dilati on. Spleen : Normal . Pancre as: Normal . Adrena l glands : Normal . Kidney s and ureter s: No hydron ephros is, stones , or suspic ious masses . Small hypode nsitie s that are too small to charac terize are noted, requir ing no dedica mary follow up. Bladde r: Normal . Reprod uctive organs : 2.5 cm left ovaria n follic ular cyst. Stomac h, small bowel, and large bowel: Normal stomac h and small bowel. Modera te increa sed fecal residu e throug hout the colon sugges ting consti pation . No obstru ction. Append ix: Normal . Perito neum and retrop eriton eum: No ascite s or pneumo perito neum. No omenta l or mesent maria elena lesion s. Lymph nodes: No enlarg ed lymph nodes. Blood vessel s: Normal . No aneury sm. No eviden ce of venous thromb osis. Abdomi nal and pelvic wall: Small fat-co ntaini ng left inguin al hernia . Bones: No acute abnorm ality. Degene rative change s right hip. IMPRES GERI: Modera te consti pation . No acute intra- abdomi nal abnorm ality. WSN: [id number] Orderi ng Physic sue: Valencia Harper Dictat ed By: Pipo Edge MD Dictat ed Date/T panda: 2:33 pm Review ed By: Pipo Edge MD Signed By: Pipo Edge MD Signed Date/T panda: 2:33 pm Transc ribed By: JACKY Transc ribed Date/T panda: 2:24 pm Patien t Class: Outpat ient [facility] ([facility]) [address] , [place], [address], 04/01/2025 17:29:24 04/02/20 25 04/02/2025 US, leighton x, valentine s, liz portillo, compl ete No observ ation record ed. [email or web address] [facility] [address] [place], [address], 04/19/2025 10:13:19 04/23/20 25 04/22/2025 MRI, lumba r spine , w/o contr ast [facility] Access ion Number : [id number] Patien t Name: Elvie Mcclurea wendi Record Number : [id number] Date of : 1970 Date of Exam: 2024 Referr ing Physic sue: Valencia Harper Associ ate [address] [facility] [address] [place] [address] Exam: MR Lumbar Spine (C-) CPT 60666 Room Descri ption: [place] GE Pion 3T MRI Lumbar Spine W/O Contra st INDICA TION: Radicu lopath y, site unspec ified TECHNI QUE: MRI of the lumbar spine was perfor med withou t intrav enous contra st utiliz ing sagitt al T1, sagitt al T2, sagitt al STIR, axial T1, and axial T2-sherry ghted sequen janes. COMPAR LOIDA: None. FINDIN GS: LOCALI ZER: No additi onal findin gs on limite d locali zer images . NUMBER ING: The study assume s 5 non-ri b-bear ing lumbar type verteb ral bodies . There is lumbar izatio n of S1. ALIGNM ENT, VERTEB SRIRAM, MARROW , AND DISCS: Alignm ent is normal . Verteb ral body height s are preser manjula. Small foci of T1 and T2 hyperi ntense signal within the L3, S3, and S4 verteb ral bodies likely focal fatty deposi ts or joselito iomas. No suspic ious bone marrow signal abnorm ality. Mild multil evel disc height loss with disc desicc ation. CONUS: The conus is normal in signal and contou r, with normal level of termin ation at L1. PARASP INAL TISSUE S: The parasp inal soft tissue s are unrema rkable . DETAIL ED FINDIN GS BY LEVEL: L1-L2: No signif icant canal stenos is or neural forami nal narrow ing. L2-L3: Broad- based disc bulge with facet arthro ray and ligame ntum flavum thicke johnnie. No signif icant canal stenos is or neural forami nal narrow ing. L3-L4: Broad- based disc bulge with facet arthro ray and ligame ntum flavum thicke johnnie contri buting to mild spinal canal stenos is and mild bilate ral neural forami nal stenos is. L4-L5: Broad- based disc bulge with facet arthro rya and ligame ntum flavum thicke johnnie contri buting to mild spinal canal stenos is. Mild to modera te left and mild right neural forami nal stenos is. Left facet joint effusi on. L5-S1: Centra l disc protru geri superi mposed on a broad- based disc bulge result s in mild bilate ral neural forami nal stenos is. No centra l canal stenos is. IMPRES GERI: No acute findin gs within the lumbar spine. Mild to modera te degene rative change s as descri bed above, most pronou nced within the lower lumbar spine. WSN: [id number] Orderi ng Physic sue: Valencia Harper onical ly Signed By: Fernando [facility] [facility] [address] [facility], [place], [address], 04/23/2025 15:19:47 Result Notes Documentation Provider Name and Address Organization Details Recorded Time Ct, Abdomen + Pelvis, W/ Contrast : CT Abd/Pelvis W/ IV + Oral Contrast Reason: R10.30 LOWER ABDOMINAL PAIN RO MASS TECHNIQUE: Spiral CT through the abdomen and pelvis with IV contrast formatted in 3 planes. 100 cc of Isovue 300 was administered intravenously. This study was performed with oral contrast. Weight-based protocol using automatic tube modulation was used to optimize exposure parameters. CTDIvol Body: 4.72 mGy, DLP Body: 215 mGy*cm. COMPARISON: 06/11/2013 FINDINGS: Procurement Manager View Findings, Lines and Tubes: None. Visualized Chest: Lung bases are clear. No pleural effusion. The heart is normal in size. No pericardial effusion. Diaphragm: Normal. Liver: Multiple subcentimeter circumscribed low-density lesions likely represent cysts (in the absence of known malignancy). Gallbladder: No CT evidence of gallbladder pathology. Bile ducts: No biliary ductal dilation. Spleen: Normal. Pancreas: Normal. Adrenal glands: Normal. Kidneys and ureters: No hydronephrosis, stones, or suspicious masses. Small hypodensities that are too small to characterize are noted, requiring no dedicated follow up. Bladder: Normal. Reproductive organs: 2.5 cm left ovarian follicular cyst. Stomach, small bowel, and large bowel: Normal stomach and small bowel. Moderate increased fecal residue throughout the colon suggesting constipation. No obstruction. Appendix: Normal. Peritoneum and retroperitoneum: No ascites or pneumoperitoneum. No omental or mesenteric lesions. Lymph nodes: No enlarged lymph nodes. Blood vessels: Normal. No aneurysm. No evidence of venous thrombosis. Abdominal and pelvic wall: Small fat-containing left inguinal hernia. Bones: No acute abnormality. Degenerative changes right hip. IMPRESSION: Moderate constipation. No acute intra-abdominal abnormality. WSN: [id number] Ordering Physician: Valencia Hurst Dictated By: Pipo Moreno MD Dictated Date/Time: 03/29/25 2:33 pm Reviewed By: Pipo Moreno MD Signed By: Pipo Moreno MD Signed Date/Time: 03/29/25 2:33 pm Transcribed By: JACKY Transcribed Date/Time: 03/29/25 2:24 pm Patient Class: Outpatient Valencia Hurst MD [address], [address] 04/01/2025 17:29:24 Problems Name Problem SNOMED Code Status Onset Date Resolution Date Notes Provider Name and Address Organization Details Recorded Time Kaylin snyder [id number] Completed 200802/28/2014 RESOLVED DATE: 11/27/19 09; RECORDED 11/27/19 09 9:11AM BY VALENCIA TOLENTINO MD, ANNOTATI ON/HARVEY lynn [facility] 6 14:14:50 Family history of ischemic heart disease [id number] Completed 200802/28/2014 RECORDED 11/27/19 09 9:11AM BY VALENCIA TOLENTINO MD, ANNOTATI ON/HARVEY Little null, [facility] 6 14:14:50 Administ ration of bacteria l and viral vaccine Completed 200802/28/2014 RECORDED 11/27/19 09 9:05AM BY LORNA GR, OFFICE VISIT Arelis Little null, [facility] 6 14:14:50 Conjunct ivitis [id number] Completed 200803/01/2014 RESOLVED DATE: 11/27/19 09; RECORDED 11/27/19 09 9:11AM BY VALENCIA TOLENTINO MD, ANNOTATI ON/ADDEN DUM Arelis Little null, [facility] 6 14:14:50 Family history of ischemic heart disease [id number] Completed 200803/01/2014 RECORDED 11/27/19 09 9:11AM BY VALENCIA TOLENTINO MD, ANNOTATI ON/ADDEN DUM Arelis Little null, [facility] 6 14:14:50 Administ ration of bacteria l and viral vaccine Completed 200803/01/2014 RECORDED 11/27/19 09 9:05AM BY LORNA GR, OFFICE VISIT Arelis Little null, [facility] 6 14:14:50 Conjunct ivitis [id number] Completed 200802/05/2014 RESOLVED DATE: 11/27/19 09; RECORDED 11/27/19 09 9:11AM BY VALENCIA TOLENTINO MD, ANNOTATI ON/ADDEN DUM Arelis Little null, [facility] 6 14:14:50 Family history of ischemic heart disease [id number] Completed 200802/05/2014 RECORDED 11/27/19 09 9:11AM BY VALENCIA TOLENTINO MD, ANNOTATI ON/ADDEN DUM Arelis Little null, [facility] 6 14:14:50 Administ ration of bacteria l and viral vaccine Completed 200802/05/2014 RECORDED 11/27/19 09 9:05AM BY LORNA GR, OFFICE VISIT Arelis lynn, [facility] 6 14:14:50 Allergic rhinitis [id number] Completed 201102/28/2014 RECORDED 06/02/20 12 10:21AM BY JIGNA AUSTIN ON/ADDEN DUM Arelis Little null, [facility] 6 14:14:50 Screenin g for malignan t neoplasm of breast Completed 201102/28/2014 RECORDED 06/02/20 12 10:21AM BY JIGNA AUSTIN ON/ADDEN DUM Arelis Little null, [facility] 6 14:14:50 Screenin g for malignan t neoplasm of cervix Completed 201102/28/2014 RECORDED 06/02/20 12 10:21AM BY JIGNA AUSTIN ON/ADDEN DUM Arelis Little null, [facility] 6 14:14:51 Insomnia 160388738 Completed 201102/28/2014 RECORDED 06/02/20 12 10:21AM BY JIGNA AUSTIN ON/ADDEN DUM Valencia Hurst MD [address] [address], [place], [address] , [facility] 8 12:32:30 Vitamin D deficien 30714669 Completed 201102/28/2014 RECORDED 06/02/20 12 10:21AM BY JIGNA AUSTIN ON/ADDEN DUM Arelis Little null, [facility] 6 14:14:50 Allergic rhinitis 14250087 Completed 201103/01/2014 RECORDED 06/02/20 12 10:21AM BY JIGNA AUSTIN ON/ADDEN DUM Arelis Little null, [facility] 6 14:14:50 Screenin g for malignan t neoplasm of breast Completed 201103/01/2014 RECORDED 06/02/20 12 10:21AM BY MAXIMILIANO AUSTINATI ON/ADDEN DUM Arelis Little null, [facility] 6 14:14:51 Screenin g for malignan t neoplasm of cervix Completed 201103/01/2014 RECORDED 06/02/20 12 10:21AM BY MAXIMILIANO AUSTINATI ON/ADDEN DUM Arelis Little null, [facility] 6 14:14:51 Insomnia 598230603 Completed 201103/01/2014 RECORDED 06/02/20 12 10:21AM BY JIGNA AUSTIN ON/ADDEN DUM Valencia Hurst MD [address] [address], [place], [address] , [facility] 8 12:32:30 Vitamin D deficien cy 36259692 Completed 201103/01/2014 RECORDED 06/02/20 12 10:21AM BY JIGNA AUSTIN ON/ADDEN DUM Arelis Little null, [facility] 6 14:14:50 Allergic rhinitis 29597101 Completed 201102/05/2014 RECORDED 06/02/20 12 10:21AM BY MAXIMILIANO AUSTINATI ON/ADDEN DUM Arelis Little null, [facility] 6 14:14:50 Screenin g for malignan t neoplasm of breast Completed 201102/05/2014 RECORDED 06/02/20 12 10:21AM BY MAXIMILIANO AUSTINATI ON/ADDEN DUM Arelis Little null, [facility] 6 14:14:50 Screenin g for malignan t neoplasm of cervix Completed 201102/05/2014 RECORDED 06/02/20 12 10:21AM BY MAXIMILIANO AUSTINATI ON/ADDEN DUM Arelis Little null, [facility] 6 14:14:51 Insomnia 516773475 Completed 201102/05/2014 RECORDED 06/02/20 12 10:21AM BY MAXIMILIANO AUSTINATI ON/ADDEN DUM Valencia Hurst MD [address] [facility] [address], [place], [address] , [facility] 8 12:32:30 Vitamin D deficien 08571765 Completed 201102/05/2014 RECORDED 06/02/20 12 10:21AM BY MAXIMILIANO AUSTINATI ON/ADDEN DUM Arelis Little null, [facility] 6 14:14:50 Pain of hip region 28442540 Completed 201202/28/2014 RECORDED 11/08/19 13 9:51AM BY SARA KIM MA, JIGNA ON/ADDEN DUM Arelis Little null, [facility] 6 14:14:50 Influenz a vaccine needed [id number] 06 Completed 201202/28/2014 RECORDED 11/08/19 13 8:59AM BY SARA KIM MA, JIGNA ON/ADDEN DUM Arelis Little null, [facility] 6 14:14:50 Adult health examinat ion Completed 201202/28/2014 RECORDED 11/08/19 13 8:59AM BY SARA KIM MA, JIGNA ON/ADDEN DUM Arelis Little null, [facility] 6 14:14:50 Pain of hip region 15578223 Completed 201203/01/2014 RECORDED 11/08/19 13 9:51AM BY SARA KIM MA, JIGNA ON/ADDEN DUM Arelis Little null, [facility] 6 14:14:50 Influenz a vaccine needed 35307823395 06 Completed 201203/01/2014 RECORDED 11/08/19 13 8:59AM BY SARA KIM MA, JIGNA ON/ADDEN DUM Arelis Little null, [facility] 6 14:14:50 Adult health examinat ion Completed 201203/01/2014 RECORDED 11/08/19 13 8:59AM BY SARA KIM MA, ANNOTATI ON/ADDEN DUM Arelis Little null, [facility] 6 14:14:50 Pain of hip region 41902647 Completed 201202/05/2014 RECORDED 11/08/19 13 9:51AM BY SARA KIM MA, ANNOTATI ON/ADDEN DUM Arelis Little null, [facility] 6 14:14:50 Influenz a vaccine needed 16088943833 06 Completed 201202/05/2014 RECORDED 11/08/19 13 8:59AM BY SARA KIM MA, ANNOTATI ON/ADDEN DUM Arelis Little null, [facility] 6 14:14:50 Adult health examinat ion Completed 201202/05/2014 RECORDED 11/08/19 13 8:59AM BY SARA KIM MA, ANNOTATI ON/ADDEN DUM Arelis Little null, [facility] 6 14:14:50 Patient status finding [id number] Completed 201202/28/2014 RECORDED 03/22/20 13 9:13AM BY JIGNA SOUSA ON/ADDEN DUM Arelis Little null, [facility] 6 14:14:50 Acute upper respirat ory infectio n [id number] Completed 201202/28/2014 IMPRESSI ON: RAPID STREP NEGATIVE , C/W VIRAL INFECTIO N, RECOMMEN D SUPPORTI VE TREATMEN T.; RECORDED 03/22/20 13 9:13AM BY MAXIMILIANO SOUSAATI ON/ADDEN DUM Arelis Little null, [facility] 6 14:14:50 Patient status finding [id number] Completed 201203/01/2014 RECORDED 03/22/20 13 9:13AM BY JAMIA WINKLER I ANNOTATI ON/ADDEN DUM Arelis Little null, [facility] 6 14:14:50 Acute upper respirat ory infectio n 94452769 Completed 201203/01/2014 IMPRESSI ON: RAPID STREP NEGATIVE , C/W VIRAL INFECTIO N, RECOMMEN D SUPPORTI VE TREATMEN T.; RECORDED 03/22/20 13 9:13AM BY JAMIA WINKLER I ANNOTATI ON/ADDEN DUM Arelis Little null, [facility] 6 14:14:50 Anemia 520169789 Active 2012 Jamia lynn [facility] 8 11:27:44 Family history of Cardiova scular disease 331369058 Active 2012 Jamia lynn [facility] 8 11:27:44 Disorder of trunk Completed 201210/18/2017 SEEN AT [facility] JULY 2012; RECORDED 03/22/20 13 9:13AM BY JAMIA WINKLER I, OFFICE VISIT Valencia Hurst MD [address] [facility] [address] [facility], [place], [address] [facility] 8 11:45:49 Patient status finding [id number] Completed 201202/05/2014 RECORDED 03/22/20 13 9:13AM BY MAXIMILIANO SOUSAATI ON/ADDEN DUM Arelis Little null, [facility] 6 14:14:50 Acute upper respirat ory infectio n [id number] Completed 201202/05/2014 IMPRESSI ON: RAPID STREP NEGATIVE , C/W VIRAL INFECTIO N, RECOMMEN D SUPPORTI VE TREATMEN T.; RECORDED 03/22/20 13 9:13AM BY JAMIA WINKLER I ANNOTATI ON/ADDEN DUM Arelis Little null, [facility] 6 14:14:50 Screenin g [facility] malignan t [facility]ix [facility] Benign neoplasm of skin 82239081 Active 2013 STORY: FOLLOWED BY PETERSON GUSMAN; RECORDED 10/17/19 14 8:30AM BY VIJAY LITTLE, HISTORIC AL SUMMARY [facility] 11:27:[facility] Screenin g for malignan t neoplasm of breast Active 2013 Jamia lynn, [facility] 8 11:27:44 Venous insuffic iency of lower limb 670991009 Active 2016 Procedur es done by Dr Frankie Blackman treatmen t availabl e besides compress ion. Valencia Hurst MD [address] [facility] [address], [place], [address] , [facility] 3 17:07:52 Gilbert' s syndrome 19139859 Active 2016 Jamia lynn, [facility] 8 11:27:44 Pain in lower limb 29070191 Active 2017 Valencia Hurst MD [address] [facility] [address], [place], [address] , [facility] 8 12:31:21 Insomnia 032162819 Active 2017 Valencia Hurst MD [address] [facility] [address], [place], [address] , [facility] 8 12:32:30 Calcific ation of breast 879310259 Active 2017 Left; bx schedule d. Normal. Valencia Hurst MD [address] [facility] [address], [place], [address] , [facility] 8 15:41:16 Pain of right ankle joint [id number] 083346 Active [facility] n and [facility]. Valencia Hurst MD [address] [facility] [address], [place], [address] , [facility] 9 08:35:05 Osteoart hrosis of the carpomet acarpal joint of the thumb 05372300 Active 2020 [facility] Seen by Dr Farfan. Valencia Hurst MD [address] [address], [place], [address] , [facility] 1 08:58:52 Basal cell carcinom a of skin 638156252 Active 2021 Valencia Hurst MD [address] [address], [place], [address] , 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 Valencia Hurst MD [address] [address], [place], [address] , [facility] 2 08:19:55 Calcific tendinit is of achilles tendon 191448627 Active 2022 Followed by podiatry Treated with ESWT (shoick wave therapy) Valencia Hurst MD [address] [address], [place], [address] , [facility] 3 07:02:20 Right medial elbow tendinop athy 86999188361 9109 Active 2022 Seen at [facility] treated with rest, meds and exercise . Valencia Hurst MD [address] [facility] [address], [place], [address] , [facility] 3 08:49:50 Left Achilles tendinit is 33929438369 9102 Active 2022 Seeing podiatry Receelham g shock wave therapy. Valencia Hurst MD [address] [facility] [address], [place], [address] , [facility] 3 08:33:44 Albuminu terence 644003741 Completed 202206/08/2023 Angelo Diego MD [address], [place], [address] , [facility] 3 13:19:01 Pain of left shoulder region Active 2022 [facility] and injected . Impingem ent syndrome . Schedule d for arthrosc opic surgery 2024. Valencia Hurst MD [address], [place], [address] , [facility] 5 14:27:52 Problem Notes None recorded. Procedures Surgical History Date Name Laterality Status Provider Name and Address Organization Details Recorded Time 05/29/20 24 Whit arthrs srg decompression completed Anita Edwards [facility] 12/10/2024 08:28:23 09/06/19 24 Ultrasound breast limited completed Anita Edwards [facility] 09/07/2023 09:01:40 06/27/20 23 Date of Last Pap Smear completed Anita Edwards [facility] 10/13/2023 08:59:50 06/27/20 23 shoulder injection completed Anita Edwards [facility] 06/29/2023 08:46:54 09/09/19 22 Most Recent Mammogram completed Arelis Little [facility] 09/10/2021 15:54:22 09/09/19 22 Mammogram Diagnostic Bilateral completed Arelisshan Little [facility] 09/10/2021 15:54:17 04/10/20 21 Date of Last Colonoscopy completed Arelis Little [facility] 04/22/2021 14:00:13 04/10/20 21 Colonoscopy completed Arelis Little [facility] 04/22/2021 13:58:23 04/25/20 18 Breast Surgery completed Jamia Ansari [facility] 02/22/2019 09:02:53 04/25/20 18 Breast Biopsy completed Jamia Ansari [facility] 02/22/2019 09:02:53 03/17/20 18 Mammogram one breast completed [address] Anglin [facility] 03/20/2018 09:25:13 10/02/19 17 Phleb veins - extrem 20+ completed Alia Turcios [facility] 10/04/2016 16:23:13 12/04/19 16 Mammogram Diagnostic Unilateral completed Arelis Little [facility] 12/05/2015 08:50:20 12/16/19 04 Caesarean Section completed Jamia Ansari [facility] 10/18/2017 11:34:05 Imaging Results None recorded. Procedure Notes None recorded. Medical Equipment None Reported. Allergies Allergen ID Allergen Name Allergen Category Reaction Reaction Severity Criticality Documentation Date Start Date Code Code System Note Provider Name and Address Organization Details Recorded Time 2390 house dust allergeni c extract environme nt,medica tion Not available Not available Not available 02/05/20142012 74833 9 RxNorm COMME NT: RECOR DED 03/22 9:13A M BY JAMIA GOODMAN OFFIC E VISIT ; Not Available [facility] 4 13:20:23 2391 Grass Pollen environme nt,medica tion Not available Not available Not available 02/05/20142012 COMME NT: RECOR DED 03/22 9:13A M BY JAMIA GOODMAN OFFIC E VISIT ; Not Available [facility] 4 13:20:23 2392 Tree Pollen medicatio n Not available Not available Not available 02/05/20142012 COMME NT: RECOR DED 03/22 9:13A M BY JAMIA GOODMAN OFFIC E VISIT ; Not Available [facility] 4 13:20:23 Medications Name Sig Start Date Stop Date Status Note LastModified by Organization Details LastModified Time trazodone 50 mg tablet Take 1 tablet every day by oral route at bedtime for 30 days, for insomnia . 2024 active Not Available Not Available Not Avai lable cetirizin e 10 mg tablet Take 1 tablet every day by oral route. 10/11 completed Not Available Not Available Not Available Pyridium 100 mg tablet Take 1 tablet 3 times a day by oral route as needed for 2 days, for UTI symptoms . 06/06 completed Not Available Not Available Not Available acetamino phen 300 mg-codein e 30 mg tablet 10/11 completed Not Available Not Available Not Available sulfameth oxazole 800 mg-trimet hoprim 160 mg tablet Take 1 tablet every 12 hours by oral route for 5 days. 06/04 completed Not Available Not Available Not Available Fluticaso ne Propionat e (Inhal) 50 mcg/BLIST inhl powd QD, EACH NARES 03/23 completed RECORDED 03/23/20 10 9:10AM BY ALIA TURCIOS ANNOTATI ON/HARVEY HOLLY; Not Available Not Available Not Available oseltamiv ir 75 mg capsule 02/22 completed Not Available Not Available Not Available diphenhyd ramine 25 mg tablet DAILY 10/11 completed RECORDED 03/22/20 13 9:13AM BY JAMIA WINKLER I, OFFICE VISIT; Not Available Not Available Not Available polymyxin B sulfate 10,000 unit-trim ethoprim 1 mg/mL eye drops QID 08/30 completed RECORDED 09/28/19 09 11:54AM BY ALIA TURCIOS, MEDICATI ON AUTO-AMDAI CTIVATIO N; Not Available Not Available Not Available gabapenti n 300 mg capsule Take 3 capsules every day by oral route at bedtime for 90 days. 2024 active Not Available Not Available Not Avai lable hydroxyzi ne HCl 25 mg tablet Take 1 tablet every day by oral route. active Not Available Not Available No t Available gabapenti n 100 mg capsule Take 1 capsule twice a day by oral route for 90 days. 2024 active Not Available Not Available Not Avai lable ergocalci ferol (vitamin D2) 1,250 mcg (50,000 unit) capsule EVERY WEEK FOR 12 WEEKS 02/26 completed RECORDED 08/23/19 09 1:09PM BY VALENCIA TOLENTINO MD, MEDICATI ON AUTO-MADAI CTIVATIO N; Not Available Not Available Not Available lorazepam 1 mg tablet 10/11 completed Not Available Not Available Not Available zolpidem 10 mg tablet TAKE ONE TABLET BY MOUTH AT BEDTIME for 90 days 2024 active prn Not Available Not Available Not Avai lable Vitamin C 250 mg tablet Take 1 tablet every day by oral route. active taking 500mg as needed Not Available Not Available Not Available lysine 500 mg tablet Take 1 tablet every day by oral route. 08/25 completed L-lysine 500mg Not Available Not Available Not Available Adult Low Dose Aspirin 81 mg tablet Take 1 tablet every day by oral route. 02/22 completed Not Available Not Available Not Available calcium 200 mg (as calcium citrate 950 mg) tablet Take 1 tablet by oral route. 10/14 completed taking 400mg Not Available Not Available Not Available Multivita min 50 Plus tablet Take 1 tablet every day by oral route. active Not Available Not Available No t Available magnesium take 1 tablet po daily active taking 400mg Not Available Not Available Not Available melatonin take 1 tablet at bedtime active taking Natures bounty sleep 3 ( 10mg melatoni n, 200mg L-theani ne, night time herbal blend Not Available Not Available Not Available zinc acetate 50 mg daily active Not Available Not Available No t Available calcium take po 400 mg daily active BID Not Available Not Available No t Available biotin take 1 tablet po daily active taking 500mg Not Available Not Available Not Available Benadryl Allergy take 1 tablet po at bedtime 06/03 completed Not Available Not Available Not Available Nasacort 1 [place] each nostril daily 2021 active Not Available Not Available Not Avai lable Vitamin D3 take 1 tablet po daily active taking 2000 IU Not Available Not Available Not Available Guiatuss AT BEDTIME 11/14 completed RECORDED 03/15/20 13 1:17PM BY VELMA HUERTA PA-C, MEDICATI ON AUTO-MADAI CTIVATIO N; Not Available Not Available Not Available ferrous gluconate 324 mg (38 mg iron) tablet Take 1 tablet twice a day by oral route. 02/22 completed Not Available Not Available Not Available Vitamin D3 100 mcg (4,000 unit) capsule Take 1 capsule every day by oral route. 02/22 completed Not Available Not Available Not Available Fluvirin 4830-0114 (PF) 45 mcg(15 mcg x3)/0.5 mL intramusc ular syringe 10/18 completed Not Available Not Available Not Available turmeric take 1 tablet po daily active taking 1500mg Not Available Not Available Not Available collagen- biotin-as corbic acid take 1 tablet po daily 11/13 completed taking hydrolyz ed collagen 6000 with 3000mg biotin,9 0mg vitamin c as calcium ascorbat e Not Available Not Available Not Available Vitals Date Recorded Body height Body mass index (BMI) Body weight Heart rate Oxygen saturation Oxygen saturation in Arterial blood by Pulse oximetry Body temperature Systolic And Diastolic Provider Name and Address Organization Details Last Updated DateTime 5 164.47 cm 17.4 kg/m2 10529.6 1 g 65 /min 100 % 100 % 98.2 [degF] 121/83 mm[Hg] Adrienne Levin MA [facility] 5 15:30:03 Social History Question Answer Notes LastModified by Organizat ion Details LastModified Time Tobacco Smoking Status Never Smoker Not Available [facility] 05/27/2020 03:36:36 Do You Have An Advance Directive? Yes Information not available 08/25/2022 Is Blood Transfusion Acceptable In An Emergency? Yes [id number] Information not available 05/27/2020 What Is Your Level Of Caffeine Consumption? Moderate 2 Cup Of Coffee Daily Information not available 08/25/2022 How Much Tobacco Do You Chew? None [id number] Information not available 05/27/2020 What Type Of Diet Are You Following? REGULAR [id number] Information not available 05/27/2020 Which Illicit Or Recreational Drugs Have You Used? None [id number] Information not available 05/27/2020 Live Alone Or With Others? With Others Information not available 12/07/2024 Do You Take Precautions To Prevent Distracted Driving? Yes Information not available 10/11/2016 How Often Do You Need To Have Someone Help You When You Read Instructions, Pamphlets, Or Other Written Material From Your Doctor Or Pharmacy? Never Information not available 10/11/2016 Have You Served In The ? No Information not available 10/11/2016 To The Best Of Your Knowledge Have You Been In Close Proximity To Any Individual Who Tested Positive For COVID-19? No [email or web address] Information not available 06/25/2020 What Was The Date Of Your Most Recent Tobacco Screening? 12/06/2024 [email or web address] Information not available 12/06/2024 How Many Children Do You Have? 1 Son In His Final Year At [employer], Graduating 2025. Information not available 12/07/2024 Do You Use Protection During Sex? No [id number] Information not available 05/27/2020 Do You Use Your Seat Belt Or Car Seat Routinely? Yes Information not available 08/03/2021 Seat Belts Used Routinely Yes Information not available 08/25/2022 Are You Sexually Active? Yes [id number] Information not available 05/27/2020 Smoke Alarm In Home Yes Information not available 08/25/2022 Do You Have Smoke And Carbon Monoxide Detectors In Your Home? Yes Information not available 08/03/2021 Are You Passively Exposed To Smoke? No [email or web address] Information not available 10/11/2016 How Much Tobacco Do You Smoke? No [email or web address] Information not available 06/25/2020 Do You Use Sunscreen Routinely? Yes [id number] Information not available 05/27/2020 Sex: Unknown Functional Status Question Answer Note LastModified by Organizat ion Details LastModified Time Do you use any illicit or recreational drugs? No Information not available 08/25/2022 Do you or have you ever used any other forms of tobacco or nicotine? No Information not available 08/25/2022 What is your level of alcohol consumption? Moderate wine with dinner Information not available 08/03/2021 Do you or have you ever used smokeless tobacco? Never used smokeless tobacco [id number] Information not available 05/27/2020 Are you currently employed? Yes [id number] Information not available 05/27/2020 Are you able to walk independently without assistance or assistive devices? YESWOREST Information not available 08/25/2022 Are you able to care for yourself independently? 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 Information not available 08/25/2022 Do you or have you ever used e-cigarettes or vape? Never used electronic cigarettes Information not available 08/25/2022 What is your exercise level? Moderate [id number] Information not available 05/27/2020 Mental Status None recorded. Family History Relationship Description Onset Age of this Age Resolved Age Notes LastModified by Organization Details LastModified Time Mother Kidney disease [id number] Not available 2019 12:59:22 Mother Disorder of thyroid gland Not available 2019 12:59:22 Mother Hypertensive disorder [email or web address] Not available 2019 12:59:22 Mother Arthritis [email or web address] Not availabl e 06/25/2020 12:59:22 Mother Hypercholest erolemia Not available 2019 12:59:23 Mother Anemia Not available 10:28:43 Father Chronic obstructive pulmonary disease 78 [email or web address] Not available 09/23 09:31:18 Father Heart disease 78 Not available 2022 10:28:43 Father Hypertensive disorder 78 Not available 2022 10:28:43 Maternal Grandmother Diabetes mellitus [email or web address] Not available 10/18 11:34:03 Notes:No sibs Medical History Condition Response Gout N Other N Kidney Stones N Blood Diseases N Hyperthyroidism N Breast Cancer N Hypothyroidism N Lung Disease N Depression N COPD N Defects or Inherited Disease N Anesthesia Complications N Headaches/Migraines Y Anxiety Disorder N Varicose Veins Y Obesity N Vision or Eye Problems Y Arthritis Y Head Injury/Concussion N Infertility Y Polyps Y Congenital Anomalies N Acid Reflux (GERD) N Cancer N Stroke N ADHD N Endometriosis N High Cholesterol Y Liver Disease N Fibromyalgia N Kidney Disease N Heart Problems N Ear or Hearing Problems N Hospitalizations Y Thyroid Problems N GI Problems N Acne N Eating Disorder N Skin Problems N Anemia Y Constipation N Bladder Problems N Mental Illness N Diabetes N Ovarian Cancer N Blood Transfusions N Seizures/Epilepsy N Tuberculosis N AIDS/HIV N Congestive Heart Failure (CHF) N Eczema N Abuse/Domestic Violence N Diverticulitis N Asthma N Allergies Y Reflux/GERD N Hepatitis N Pulmonary Embolism N Hypertension N Chicken Pox Y Autism Spectrum Disorder (ASD) N Osteoporosis N Gynecological History Statement/Question Response Date of Last Pap Smear 06/27/2023 Date of Last Colonoscopy 04/10/2021 Most Recent Mammogram 09/09/2021 Obstetrics History GPAL:G 0 P 0 0 0 0 Immunizations Vaccine Type Date Status Note Provider Nam e and Address Organization Details Recorded Time influenza, unspecified formulation 7 completed [facility] 13:47:25 Influenza, split virus, trivalent, [facility] 15:41:36 Influenza, split virus, quadrivalent, preservative 0 [facility] 11:05:11 Influenza, split virus, trivalent, preservative 4 [facility] 11:05:11 Influenza, split virus, quadrivalent, preservative 6 [facility] 11:05:11 COVID-19, mRNA, LNP-S, PF, 10 mcg/0.2 mL dose, heidi-sucrose 1 completed ESTHER Sanchez [facility] 08/03/2021 11:05:11 COVID-19, mRNA, LNP-S, PF, 30 mcg/0.3 mL dose 1 [facility] 11:05:11 Influenza, split virus, quadrivalent, preservative 8 [facility] 11:05:11 COVID-19, mRNA, LNP-S, PF, 30 mcg/0.3 mL dose 1 completed ESTHER Sanchez [facility] 08/03/2021 11:05:11 Influenza, MDCK, quadrivalent, PF 9 completed ESTHER Sanchez, [facility] 08/03/2021 11:05:11 Influenza, split virus, quadrivalent, PF 1 completed ESTHER Sanchez, [facility] 08/03/2021 11:05:11 Tdap 9 completed Jamia lynn [facility] 10/18/2017 11:27:44 Influenza, split virus, trivalent, preservative 2 completed Jamia lynn [facility] 10/18/2017 11:27:44 Td (adult), 2 Lf tetanus toxoid, preservative free, adsorbed 9 completed Not Available [facility] 08/11/2019 02:21:30 Past Encounters Encounter ID Performer Location Encounter Start Date Encounter Closed Date Diagnosis/Indication Diagnosis SNOMED-CT Code Diagnosis ICD10 Code Diagnosis IMO Codes Diagnosis Note [id number] Valencia Hurst MD Main Office [address] [facility] [address] [facility] [place] [phone] 03/19/2025 15:06:16 03/19/2025 16:05:05 Muscle pain 28876886 M79.10 22924 Lower abdominal pain [id number] 81733 R10.30 418571 Health Concerns Section Related Observation LastModified by Organization Detai ls LastModified Time None Recorded Concern Status LastModified by Organization Details LastModified Time None Recorded Payers Encounter Date Sequence Insurance Name Policy Number Policy Delarosa Covered Member ID Delarosa Member ID Guarantor Name 03/19/2025 1 [facility] [id number] 1 Ivan Mcclure [id number] Alecia Mcclure Notes Date Note Type Note Provider Name and Address Organization Details Recorded Time 03/19/2025 text/html ROS as noted in the HPI She has been having lower abdominal discomfort which she states is not really painful. It has been an intermittent problem for months or longer. She denies any urinary symptoms and has not had n/v or change in bowel habits. She also has years of lower leg and now bilateral thigh pains. The pain in her legs and lower abdomen is becoming worse with time. She has been seen by vascular surgery and urology and no clear etiology for her pain has been found. She is scheduled for a transvaginal US and a cystoscopy. She plays tennis regularly and does not have pain during or just after playing. She also does not have pain upon arising in the am. She has seen vascular in the past for circulation problems and was diagnose with chronic venous HTN which is treated with compression if needed. Some of her leg symptoms improved when she started on gabapentin for RLS. She continues to have her menses but has noticed that they seem to be changing. She called her [employer] was given an appointment for more than 5 months from now and told to call her PCP. Valencia Hurst MD [address] [address], [place], [address], [facility] 04/20/2025 17:12:10 OBGyn Episode No OBEpisode recorded.
--- OUTSIDE RECORDS SUMMARY | 2025-06-10 07:46 | XMS_ITS | Data Portability ---
Author Organization [facility], Main Office Address [address] [place] [address] Care Team Providers Care Pattern Fitter Name Role Phone VALENCIA HURST Primary Care Provider Unavail able [facility] Referring Provider VIKRAM MANUEL Coke Inspector [phone] ANDREIA MAYA Referring Provider [phone] MICHELE MATOS Vascular Surgeon ARIC PANDYA Neurologist OCATHRYN ESCOTO Referring Provider [phone] DAISY MCDONALD Referring Provider HAYLEE BARCENAS Orthopedic Surgeon [phone] MALLORIE BALDERAS Referring Provider Assessment Encounter Date Assessment Date Assessment LastModified by Organization Details LastModified Time 06/03/2023 06/03/2023 This service was provided using telemedicine. Patient consented to video & audio visit Patient was located in the [facility]. Provider was located in the office. No other persons participated in the telemedicine visit except for the patient unless otherwise indicated here. Total time of visit was 14 minutes. stephan Not available 06/03/2023 15:22:50 03/19/2025 03/19/2025 Note was amended after her CT scan results were received. supa Not available 04/20/2025 17:12:01 Plan of Treatment Reminders Order Date Submit Date Provider Last Modified By Organization Details Last Modified Time Details Appointments None recorde d. Lab urinaly sis complet e, reflex culture 2024 025 [facility] (Centralized Electronic Ordering - All Locations), Patient Can Go To The Location Of Their Choice, 12:05:56 lh + FSH, serum 2024 025 [facility] (Centralized Electronic Ordering - All Locations), Patient Can Go To The Location Of Their Choice, 12:05:57 CK (creati ne kinase) , total, serum 2024 025 [facility] (Centralized Electronic Ordering - All Locations), Patient Can Go To The Location Of Their Choice, 12:05:58 magnesi um, serum or plasma 2024 025 [facility] (Centralized Electronic Ordering - All Locations), Patient Can Go To The Location Of Their Choice, 12:05:59 CBC w/ auto diff 2024 025 [facility] (Centralized Electronic Ordering - All Locations), Patient Can Go To The Location Of Their Choice, 12:05:55 inflamm ation panel, serum or plasma 2024 025 [facility] (Centralized Electronic Ordering - All Locations), Patient Can Go To The Location Of Their Choice, 12:05:57 CMP, serum or plasma 2024 025 [facility] (Centralized Electronic Ordering - All Locations), Patient Can Go To The Location Of Their Choice, 12:05:55 lipid panel, serum 2024 025 [facility] (Centralized Electronic Ordering - All Locations), Patient Can Go To The Location Of Their Choice, 10:02:50 CMP, serum or plasma 2024 025 [facility] (Centralized Electronic Ordering - All Locations), Patient Can Go To The Location Of Their Choice, 10:02:50 CBC w/ auto diff 2024 025 [facility] (Centralized Electronic Ordering - All Locations), Patient Can Go To The Location Of Their Choice, 5 10:02:50 ESR (erythr ocyte sedimen tation rate), blood 2023 024 [facility], [address], [place], [address], 4 00:12:24 unliste d lab - CRP+hla -B27 2023 024 [facility], [address], [place], [address], 4 00:12:20 CBC 2023 024 [facility] (Centralized Electronic Ordering - All Locations), Patient Can Go To The Location Of Their Choice, 4 00:12:22 lipid panel, serum 2023 024 [facility] (Centralized [facility] Ordering - All Locations), Patient Can Go To The Location Of Their Choice, 4 00:12:23 CMP, serum or plasma 2023 024 [facility] (Centralized Electronic Ordering - All Locations), Patient Can Go To The Location Of Their Choice, 4 00:12:21 unliste d lab - urinaly sis w/refle x culture 2022 023 [facility], [address], [address], 3 00:18:00 Referral orthope dic surgeon belem Loving Impingjoseph ment syndrom e of left shoulde r. Had surgery done by Dr Ashley del real 05/29/24 and pain has persist ed. She is looking for a second opinion concern ing her options . 2024 025 nicole Christopher, [address] [facility], [place], [address], 5 08:42:34 vascula r surgeon referra l - Vascula r insuffi ciency followe d by Dr Ramirez in the past. 2022 023 [facility], [address], [address], [place], [address], 3 10:06:51 Procedures None recorde d. Surgeries None recorde d. Imaging CT, abdomen + pelvis, w/ contras t - Lower quadran t abdomin al pain, changin g menses and suprapu bic tendern ess. R/o mass. 2024 025 [facility], [address], [address], [place], [address], 5 14:36:57 bone density 2023 024 [email or web address] In-Office Order, Internal Use Only DO Not Attach Compendium DO Not Attach Compendium, Do Not Delete/merge, [id number] 4 08:27:04 Medication Orders gabapen tin 100 mg capsule 2024 025 [facility], [address] [place], [address], 5 09:46:02 gabapen tin 300 mg capsule 2024 025 [facility], [address] [place], [address], 5 09:46:03 sulfame thoxazo le 800 mg-trim ethopri m 160 mg tablet 2022 023 [facility], [address] [place], [address], 3 09:06:59 Pyridiu m 100 mg tablet 2022 023 [facility], [address] [place], [address], 3 16:45:50 Patient TargetsNo targets recorded. Patient Instructions Encounter Date Encounter Id Patient Instructions Last Modified By Organization Details Last Modified Time 08/25/2022 [id number] insomnia: care instructions [email or web address] Not available 08/25/2022 11:18:29 sjogren's syndrome: care instructions [email or web address] Not available 08/25/2022 11:18:28 06/03/2023 [id number] painful urination (dysuria): care instructions [email or web address] Not available 06/03/2023 15:15:52 blood in the urine: care instructions awychowski Not available 06/03/2023 15:15:52 10/12/2023 [id number] sjogren's syndrome: care instructions acennerazzo Not available 10/12/2023 14:55:10 12/06/2024 [id number] high cholesterol: care instructions acennerazzo Not available 12/06/2024 10:02:40 de quervain's tenosynovitis: care instructions acennerazzo Not available 12/06/2024 09:52:14 de quervain's disease: exercises acennerazzo Not available 12/06/2024 09:52:14 insomnia: care instructions acennerazzo Not available 12/06/2024 09:46:00 sjogren's syndrome: care instructions acennerazzo Not available 12/06/2024 09:46:00 Reason for Referral Vascular Surgeon Referral fo r Venous insufficiency of lower limb Vascular insufficiency followed by Dr Ramirez in the past. Referring Physician: Valencia Hurst [facility], Encounter Date: 08/25/2022 Orthopedic Surgeon Referral for Pain of left shoulder joint Impingement syndrome of left shoulder. Had surgery done by Dr Barcenas 05/29/24 and pain has persisted. She is looking for a second opinion concerning her options. Referring Physician: Valencia Hurst [facility], Encounter Date: 12/06/2024 Results Created Date Observation Date Name Description Value Unit Range Abnormal Flag Note LastModifiedBy Organization Detail LastModifiedTime 05/26/20 23 05/26/2023 STEFANIE TIN ferritin 124 NG/mL (14-28 3) Not Available [facility] (Centralized Electronic Ordering - All Locations) Patient Can Go To The Location Of Their Choice, 05/26/2023 18:01:06 06/03/2006/04/2023 UA W/REF STACY CULTU RE appear/color LIGHT YELLO W CLEAR Not Available [facility] (Centralized Electronic Ordering - All Locations) Patient Can Go To The Location Of Their Choice, 06/04/2023 00:17:59 06/03/2006/04/2023 UA W/REF STACY CULTU RE sp. gravity 1.015 (1.002 -1.030 ) Not Available [facility] (Centralized Electronic Ordering - All Locations) Patient Can Go To The Location Of Their Choice, 06/04/2023 00:17:59 06/03/2006/04/2023 UA W/REF STACY CULTU RE urine pH 7.0 (5.0-8 .0) Not Available [facility] (Centralized Electronic Ordering - All Locations) Patient Can Go To The Location Of Their Choice, 06/04/2023 00:17:59 06/03/2006/04/2023 UA W/REF STACY CULTU RE urine albumin 1+ (neg) abnormal Not Available [facility] ([facility] Ordering - All Locations) Patient Can Go To The Location Of Their Choice, 06/04/2023 00:17:59 06/03/2006/04/2023 UA W/REF STACY CULTU RE urine glucose NEGATI VE (neg) Not Available [facility] (Centralized Electronic Ordering - All Locations) Patient Can Go To The Location Of Their Choice, 06/04/2023 00:17:59 06/03/2006/04/2023 UA W/REF STACY CULTU RE urine ketones NEGATI VE (neg) Not Available [facility] (Centralized Electronic Ordering - All Locations) Patient Can Go To The Location Of Their Choice, 06/04/2023 00:17:59 06/03/2006/04/2023 UA W/REF STACY CULTU RE urine bilirubin NEGATI VE (neg) Not Available [facility] (Centralized Electronic Ordering - All Locations) Patient Can Go To The Location Of Their Choice, 06/04/2023 00:17:59 06/03/2006/04/2023 UA W/REF STACY CULTU RE urine hemoglobin NEGATI VE (neg) Not Available [facility] (Centralized Electronic Ordering - All Locations) Patient Can Go To The Location Of Their Choice, 06/04/2023 00:17:59 06/03/2006/04/2023 UA W/REF STACY CULTU RE urine nitrite NEGATI VE (neg) Not Available [facility] (Centralized Electronic Ordering - All Locations) Patient Can Go To The Location Of Their Choice, 06/04/2023 00:17:59 06/03/2006/04/2023 UA W/REF STACY CULTU RE urine leukocyte NEGATI VE (neg) Not Available [facility] (Centralized Electronic Ordering - All Locations) Patient Can Go To The Location Of Their Choice, 06/04/2023 00:17:59 06/03/2006/04/2023 UA W/REF STACY CULTU RE urobilinogen NORMAL mg/dL (norm) Not Available [facility] ([facility] Order[facility] - All Locations) Patient Can Go To The Location Of Their Choice, 06/04/2023 00:17:59 06/03/2006/04/2023 UA W/REF STACY CULTU RE urine WBCs 2 /hpf (0-5) Not Available [facility] (Centralized Electronic Ordering - All Locations) Patient Can Go To The Location Of Their Choice, 06/04/2023 00:17:59 06/03/2006/04/2023 UA W/REF STACY CULTU RE urine RBCs <1 /hpf (0-3) Not Available [facility] (Centralized Electronic Ordering - All Locations) Patient Can Go To The Location Of Their Choice, 06/04/2023 00:17:59 06/03/2006/04/2023 UA W/REF STACY CULTU RE mucus SLIGHT /lpf Not Available [facility] (Centralized Electronic Ordering - All Locations) Patient Can Go To The Location Of Their Choice, 06/04/2023 00:17:59 06/03/2006/04/2023 UA W/REF STACY CULTU RE clarity CLEAR (clear ) Not Available [facility] (Centralized Electronic Ordering - All Locations) Patient Can Go To The Location Of Their Choice, 06/04/2023 00:17:59 06/03/2006/04/2023 UA W/REF STACY CULTU RE culture indication CULTUR E NOT INDICA MARY Not Available [facility] (Centralized Electronic Ordering - All Locations) Patient Can Go To The Location Of Their Choice, 06/04/2023 00:17:59 06/07/2006/07/2023 LAB ONLY URINA LYSIS appear/color COLOR LESS CLEAR Not Available [facility] (Centralized Electronic Ordering - All Locations) Patient Can Go To The Location Of Their Choice, 06/07/2023 20:53:59 06/07/2006/07/2023 LAB ONLY URINA LYSIS sp. gravity 1.008 (1.002 -1.030 ) Not Available [facility] (Centralized Electronic Ordering - All Locations) Patient Can Go To The Location Of Their Choice, 06/07/2023 20:53:59 06/07/2006/07/2023 LAB ONLY URINA LYSIS urine pH 6.5 (5.0-8 .0) Not Available [facility] (Centralized Electronic Ordering - All Locations) Patient Can Go To The Location Of Their Choice, 06/07/2023 20:53:59 06/07/2006/07/2023 LAB ONLY URINA LYSIS urine albumin NEGATI VE (neg) Not Available [facility] ([facility]ized [facility] Ordering - All Locations) Patient Can Go To The Location Of Their Choice, 06/07/2023 20:53:59 06/07/2006/07/2023 LAB ONLY URINA LYSIS urine glucose NEGATI VE (neg) Not Available [facility] ([facility]ized [facility] Ordering - All Locations) Patient Can Go To The Location Of Their Choice, 06/07/2023 20:53:59 06/07/2006/07/2023 LAB ONLY URINA LYSIS urine ketones NEGATI VE (neg) Not Available [facility] (Centralized Electronic Ordering - All Locations) Patient Can Go To The Location Of Their Choice, 06/07/2023 20:53:59 06/07/2006/07/2023 LAB ONLY URINA LYSIS urine bilirubin NEGATI VE (neg) Not Available [facility] (Centralized Electronic Ordering - All Locations) Patient Can Go To The Location Of Their Choice, 06/07/2023 20:53:59 06/07/2006/07/2023 LAB ONLY URINA LYSIS urine hemoglobin NEGATI VE (neg) Not Available [facility] ([facility]ized [facility] Ordering - All Locations) Patient Can Go To The Location Of Their Choice, 06/07/2023 20:53:59 06/07/2006/07/2023 LAB ONLY URINA LYSIS urine nitrite NEGATI VE (neg) Not Available [facility] ([facility]ized [facility] Ordering - All Locations) Patient Can Go To The Location Of Their Choice, 06/07/2023 20:53:59 06/07/2006/07/2023 LAB ONLY URINA LYSIS urine leukocyte NEGATI VE (neg) Not Available [facility] ([facility]ized Electronic Ordering - All Locations) Patient Can Go To The Location Of Their Choice, 06/07/2023 20:53:59 06/07/2006/07/2023 LAB ONLY URINA LYSIS urobilinogen NORMAL mg/dL (norm) Not Available [facility] ([facility] Order[facility] - All Locations) Patient Can Go To The Location Of Their Choice, 06/07/2023 20:53:59 06/07/2006/07/2023 LAB ONLY URINA LYSIS urine WBCs NONE SEEN /hpf (0-5) Not Available [facility] ([facility]ized [facility] Ordering - All Locations) Patient Can Go To The Location Of Their Choice, 06/07/2023 20:53:59 06/07/2006/07/2023 LAB ONLY URINA LYSIS urine RBCs <1 /hpf (0-3) Not Available [facility] (Centralized Electronic Ordering - All Locations) Patient Can Go To The Location Of Their Choice, 06/07/2023 20:53:59 06/07/2006/07/2023 LAB ONLY URINA LYSIS squamous epith <1 /hpf (0-8) Not Available [facility] ([facility] Ordering - All Locations) Patient Can Go To The Location Of Their Choice, 06/07/2023 20:53:59 06/07/2006/07/2023 TP/CR RATIO , URINE TP/cr ratio Unable to calcul ate (0-0.2 ) Not Available [facility] ([facility] Ordering - All Locations) Patient Can Go To The Location Of Their Choice, [id number] 06/07/2023 21:45:12 06/07/20 23 06/07/2023 TP/CR RATIO , URINE urine protein <4 mg/dL Not Available [facility] ([facility] Order[facility] - All Locations) Patient Can Go To The Location Of Their Choice, [id number] 06/07/2023 21:45:12 06/07/20 23 06/07/2023 TP/CR RATIO , URINE urine creat 34.4 mg/dL Not Available [facility] ([facility] Order[facility] - All Locations) Patient Can Go To The Location Of Their Choice, [id number] 06/07/2023 21:45:12 10/13/19 24 10/15/2023 CRP+H LA-B2 7 C-reactive protein, quant 2 mg/L 0-10 Not Available [facility] ([facility]) [address], [place], [address], 10/21/2023 00:12:20 10/13/19 24 10/21/2023 CRP+H LA-B2 7 hla-B27 Negati ve HLA-B *27 Negat tony B27 allel e inter preta tion for all loci based on IMGT/ HLA datab ase versi on 3. 0 This test was devel oped and its perfo rmanc e marina cteri stics deter mined by [facility]. It has not been clear ed or appro manjula by the Food and Drug Admin istra tion. [facility] CLIA ID Kristen r [id number] THis test was perfo rmed using Polym erase Chain React ion (PCR) and Seque nce Speci fic Oligo nucle otide Probe s (SSOP ) techn ique. Seque nce Based Typin g (SBT) may be used as a suppl ement al oanh noble when valarie matamoros. If you have quest ions, pleas e call HLA custo sj servi ce at [phone] or email at [email or web address] orp.c om. Not Available [facility] ([facility]) [address] [facility], [place], [address], 10/21/2023 00:12:20 10/13/19 24 10/14/2023 COMP. METAB OLIC PANEL (14) glucose 86 mg/dL 70-99 Not Available [facility] ([facility]) [address] [place], [address], 10/21/2023 00:12:21 10/13/19 24 10/14/2023 COMP. METAB OLIC PANEL (14) BUN 11 mg/dL 6-24 Not Available [facility] ([facility]) [address] [place], [address], 10/21/2023 00:12:21 10/13/19 24 10/14/2023 COMP. METAB OLIC PANEL (14) creatinine 0.79 mg/dL 0.57-1 .00 Not Available [facility] ([facility]) [address] [place], [address], 10/21/2023 00:12:21 10/13/19 24 10/14/2023 COMP. METAB OLIC PANEL (14) eGFR 88 mL/mi n/1.7 3 >59 Not Available [facility] ([facility]) [address] [place], [address], 10/21/2023 00:12:21 10/13/19 24 10/14/2023 COMP. METAB OLIC PANEL (14) BUN/creatini ne ratio 14 9-23 Not Available [facility] ([facility]) [address] [place], [address], 10/21/2023 00:12:21 10/13/19 24 10/14/2023 COMP. METAB OLIC PANEL (14) sodium 138 mmol/ L 134-14 4 Not Available [facility] ([facility]) [address] [place], [address], 10/21/2023 00:12:21 10/13/19 24 10/14/2023 COMP. METAB OLIC PANEL (14) potassium 5.7 mmol/ L 3.5-5. 2 above high normal Not Available [facility] ([facility]) [address] [place], [address], 10/21/2023 00:12:21 10/13/19 24 10/14/2023 COMP. METAB OLIC PANEL (14) chloride 101 mmol/ L 96-106 Not Available [facility] ([facility]) [address] [place], [address], 10/21/2023 00:12:21 10/13/19 24 10/14/2023 COMP. METAB OLIC PANEL (14) carbon dioxide, total 25 mmol/ L Not Available [facility] ([facility]) [address] [place], [address], 10/21/2023 00:12:21 10/13/19 24 10/14/2023 COMP. METAB OLIC PANEL (14) calcium 9.6 mg/dL 8.7-10 .2 Not Available [facility] ([facility]) [address] [place], [address], 10/21/2023 00:12:21 10/13/19 24 10/14/2023 COMP. METAB OLIC PANEL (14) protein, total 6.3 g/dL 6.0-8. 5 Not Available [facility] ([facility]) [address] [place], [address], 10/21/2023 00:12:21 10/13/19 24 10/14/2023 COMP. METAB OLIC PANEL (14) albumin 4.2 g/dL 3.8-4. 9 Not Available [facility] ([facility] [address] [facility] [place] [address], 10/21/2023 00:12:21 10/13/19 24 10/14/2023 COMP. METAB OLIC PANEL (14) globulin, total 2.1 g/dL 1.5-4. 5 Not Available [facility] ([facility]) [address] [facility], [place], [address], 10/21/2023 00:12:21 10/13/19 24 10/14/2023 COMP. METAB OLIC PANEL (14) A/G ratio 2.0 1.2-2. 2 Not Available [facility] ([facility]) [address] [facility], [place], [address], 10/21/2023 00:12:21 10/13/19 24 10/14/2023 COMP. METAB OLIC PANEL (14) bilirubin, total 0.6 mg/dL 0.0-1. 2 Not Available [facility] ([facility]) [address] [place], [address], 10/21/2023 00:12:21 10/13/19 24 10/14/2023 COMP. METAB OLIC PANEL (14) alkaline phosphatase 22 IU/L 44-121 below low normal Not Available [facility] ([facility]) [address] [facility], [place], [address], 10/21/2023 00:12:21 10/13/19 24 10/14/2023 COMP. METAB OLIC PANEL (14) AST (SGOT) 12 IU/L 0-40 Not Available [facility] ([facility]) [address] [facility], [place], [address], 10/21/2023 00:12:21 10/13/19 24 10/14/2023 COMP. METAB OLIC PANEL (14) ALT (SGPT) 11 IU/L 0-32 Not Available [facility] ([facility]) [address] [place], [address], 10/21/2023 00:12:21 10/13/19 24 10/14/2023 CBC, NO DIFFE RENTI AL/PL ATELE T WBC 6.2 x10e3 /uL 3.4-10 .8 Not Available [facility] ([facility]) [address] [place], [address], 10/21/2023 00:12:22 10/13/19 24 10/14/2023 CBC, NO DIFFE RENTI AL/PL ATELE T RBC 4.23 x10e6 /uL 3.77-5 .28 Not Available [facility] ([facility]) [address] [facility], [place], [address], 10/21/2023 00:12:22 10/13/19 24 10/14/2023 CBC, NO DIFFE RENTI AL/PL ATELE T hemoglobin 12.6 g/dL 11.1-1 5.9 Not Available [facility] ([facility]) [address] [place], [address], 10/21/2023 00:12:22 10/13/19 24 10/14/2023 CBC, NO DIFFE RENTI AL/PL ATELE T hematocrit 37.5 % 34.0-4 6.6 Not Available [facility] ([facility]) [address] [facility], [place], [address], 10/21/2023 00:12:22 10/13/19 24 10/14/2023 CBC, NO DIFFE RENTI AL/PL ATELE T MCV 89 fL 79-97 Not Available [facility] ([facility]) [address] [place], [address], 10/21/2023 00:12:22 10/13/19 24 10/14/2023 CBC, NO DIFFE RENTI AL/PL ATELE T MCH 29.8 pg 26.6-3 3.0 Not Available [facility] ([facility]) [address] [place], [address], 10/21/2023 00:12:22 10/13/19 24 10/14/2023 CBC, NO DIFFE RENTI AL/PL ATELE T MCHC 33.6 g/dL 31.5-3 5.7 Not Available [facility] ([facility]) [address] [facility] [place], [address], 10/21/2023 00:12:22 10/13/19 24 10/14/2023 CBC, NO DIFFE RENTI AL/PL ATELE T RDW 12.7 % 11.7-1 5.4 Not Available [facility] ([facility]) [address] [facility], [place], [address], 10/21/2023 00:12:22 10/13/19 24 10/14/2023 CBC, NO DIFFE RENTI AL/PL ATELE T NRBC PLANT CLERK Not Available [facility] ([facility]) [address] [place], [address], 10/21/2023 00:12:22 10/13/19 24 10/14/2023 LIPID PANEL cholesterol, total 228 mg/dL 100-19 9 above high normal Not Available [facility] ([facility]) [address] [place], [address], 10/21/2023 00:12:23 10/13/19 24 10/14/2023 LIPID PANEL triglyceride s 79 mg/dL 0-149 Not Available [facility] ([facility]) [address] [place], [address], 10/21/2023 00:12:23 10/13/19 24 10/14/2023 LIPID PANEL HDL cholesterol 90 mg/dL >39 Not Available [facility] ([facility]) [address] [place], [address], 10/21/2023 00:12:23 10/13/19 24 10/14/2023 LIPID PANEL VLDL cholesterol samantha 14 mg/dL 5-40 Not Available [facility] ([facility]) [address] [place], [address], 10/21/2023 00:12:23 10/13/19 24 10/14/2023 LIPID PANEL LDL chol calc ([facility]) 124 mg/dL 0-99 above high normal Not Available [facility] ([facility]) [address] [facility] [place] [place], [address], 10/21/2023 00:12:23 10/13/19 24 10/14/2023 LIPID PANEL comment: PLANT CLERK Not Available [facility] ([facility]) [address] [facility] [place] [place], [address], 10/21/2023 00:12:23 10/13/19 24 10/14/2023 SEDIM ENTAT ION RATE- WESTE RGREN sedimentatio n rate-westerg joey 3 mm/HR 0-40 Not Available [facility] ([facility]) [address] [facility] [place] [place], [address], 10/21/2023 00:12:24 03/20/20 25 03/20/2025 CMP14 +EGFR glucose 87 mg/dL 70-99 normal Not Available [facility] ([facility]) [address] [facility], [place], [address], 03/22/2025 12:05:55 03/20/20 25 03/20/2025 CMP14 +EGFR BUN 14 mg/dL 6-24 normal Not Available [facility] ([facility]) [address] [facility], [place], [address], 03/22/2025 12:05:55 03/20/20 25 03/20/2025 CMP14 +EGFR creatinine 0.80 mg/dL 0.57-1 .00 normal Not Available [facility] ([facility]) [address] [facility] [place] [place], [address], 03/22/2025 12:05:55 03/20/20 25 03/20/2025 CMP14 +EGFR eGFR 86 mL/mi n/1.7 3 >59 normal Not Available [facility] ([facility]) [address] [facility] [place] [place], [address], 03/22/2025 12:05:55 0803/20/2025 CMP14 +EGFR BUN/creatini ne ratio 18 9-23 normal Not Available [facility] ([facility]) [address] [place], [address], 03/22/2025 12:05:55 03/20/20 25 03/20/2025 CMP14 +EGFR sodium 139 mmol/ L 134-14 4 normal Not Available [facility] ([facility]) [address] [place], [address], 03/22/2025 12:05:55 03/20/2003/20/2025 CMP14 +EGFR potassium 5.3 mmol/ L 3.5-5. 2 above high normal Not Available [facility] ([facility]) [address] [facility], [place], [address], 03/22/2025 12:05:55 03/20/2003/20/2025 CMP14 +EGFR chloride 102 mmol/ L 96-106 normal Not Available [facility] ([facility]) [address] [place], [address], 03/22/2025 12:05:55 03/20/2003/20/2025 CMP14 +EGFR carbon dioxide, total 23 mmol/ L 20-29 normal Not Available [facility] ([facility]) [address] [place], [address], 03/22/2025 12:05:55 03/20/2003/20/2025 CMP14 +EGFR calcium 9.6 mg/dL 8.7-10 .2 normal Not Available [facility] ([facility]) [address] [place], [address], 03/22/2025 12:05:55 03/20/2003/20/2025 CMP14 +EGFR protein, total 6.4 g/dL 6.0-8. 5 normal Not Available [facility] ([facility]) [address] [place], [address], 03/22/2025 12:05:55 03/20/20 25 03/20/2025 CMP14 +EGFR albumin 4.4 g/dL 3.8-4. 9 normal Not Available [facility] ([facility]) [address] [place], [address], 03/22/2025 12:05:55 03/20/20 25 03/20/2025 CMP14 +EGFR globulin, total 2.0 g/dL 1.5-4. 5 Not Available [facility] ([facility]) [address] [place], [address], 03/22/2025 12:05:55 03/20/20 25 03/20/2025 CMP14 +EGFR bilirubin, total 0.6 mg/dL 0.0-1. 2 normal Not Available [facility] ([facility]) [address] [place], [address], 03/22/2025 12:05:55 03/20/20 25 03/20/2025 CMP14 +EGFR alkaline phosphatase 20 IU/L 44-121 below low normal Not Available [facility] ([facility]) [address] [place], [address], 03/22/2025 12:05:55 03/20/20 25 03/20/2025 CMP14 +EGFR AST (SGOT) 18 IU/L 0-40 normal Not Available [facility] ([facility]) [address] [place], [address], 03/22/2025 12:05:55 03/20/20 25 03/20/2025 CMP14 +EGFR ALT (SGPT) 14 IU/L 0-32 normal Not Available [facility] ([facility]) [address] [place], [address], 03/22/2025 12:05:55 03/20/20 25 03/20/2025 CBC WITH DIFFE RENTI AL/PL ATELE T WBC 5.8 x10e3 /uL 3.4-10 .8 normal Not Available [facility] ([facility]) [address] [place], [address], 03/22/2025 12:05:55 03/20/2003/20/2025 CBC WITH DIFFE RENTI AL/PL ATELE T RBC 4.26 x10e6 /uL 3.77-5 .28 normal Not Available [facility] ([facility]) [address] [place], [address], 03/22/2025 12:05:55 03/20/2003/20/2025 CBC WITH DIFFE RENTI AL/PL ATELE T hemoglobin 12.7 g/dL 11.1-1 5.9 normal Not Available [facility] ([facility]) [address] [place], [address], 03/22/2025 12:05:55 03/20/2003/20/2025 CBC WITH DIFFE RENTI AL/PL ATELE T hematocrit 38.5 % 34.0-4 6.6 normal Not Available [facility] ([facility]) [address] [place], [address], 03/22/2025 12:05:55 03/20/2003/20/2025 CBC WITH DIFFE RENTI AL/PL ATELE T MCV 90 fL 79-97 normal Not Available [facility] ([facility]) [address] [place], [address], 03/22/2025 12:05:55 03/20/2003/20/2025 CBC WITH DIFFE RENTI AL/PL ATELE T MCH 29.8 pg 26.6-3 3.0 normal Not Available [facility] ([facility]) [address] [place], [address], 03/22/2025 12:05:55 03/20/2003/20/2025 CBC WITH DIFFE RENTI AL/PL ATELE T MCHC 33.0 g/dL 31.5-3 5.7 normal Not Available [facility] ([facility]) [address] [place], [address], 03/22/2025 12:05:55 03/20/20 25 03/20/2025 CBC WITH DIFFE RENTI AL/PL ATELE T RDW 13.0 % 11.7-1 5.4 Not Available [facility] ([facility]) [address] [facility], [place], [address], 03/22/2025 12:05:55 03/20/2003/20/2025 CBC WITH DIFFE RENTI AL/PL ATELE T platelets 222 x10e3 /uL 150-45 0 normal Not Available [facility] ([facility]) [address] [place], [address], 03/22/2025 12:05:55 03/20/20 25 03/20/2025 CBC WITH DIFFE RENTI AL/PL ATELE T neutrophils 58 % not estab. normal Not Available [facility] ([facility]) [address] [place], [address], 03/22/2025 12:05:55 03/20/20 25 03/20/2025 CBC WITH DIFFE RENTI AL/PL ATELE T lymphs 32 % not estab. normal Not Available [facility] ([facility]) [address] [place], [address], 03/22/2025 12:05:55 03/20/20 25 03/20/2025 CBC WITH DIFFE RENTI AL/PL ATELE T monocytes 8 % not estab. normal Not Available [facility] ([facility]) [address] [place], [address], 03/22/2025 12:05:55 03/20/20 25 03/20/2025 CBC WITH DIFFE RENTI AL/PL ATELE T eos 1 % not estab. normal Not Available [facility] ([facility]) [address] [facility], [place], [address], 03/22/2025 12:05:55 03/20/20 25 03/20/2025 CBC WITH DIFFE RENTI AL/PL ATELE T basos 1 % not estab. normal Not Available [facility] ([facility]) [address] [facility], [place], [address], 03/22/2025 12:05:55 03/20/20 25 03/20/2025 CBC WITH DIFFE RENTI AL/PL ATELE T immature cells PLANT CLERK Not Available [facility] ([facility]) [address] [place], [address], 03/22/2025 12:05:55 03/20/20 25 03/20/2025 CBC WITH DIFFE RENTI AL/PL ATELE T neutrophils (absolute) 3.4 x10e3 /uL 1.4-7. 0 normal Not Available [facility] ([facility]) [address] [place], [address], 03/22/2025 12:05:55 03/20/20 25 03/20/2025 CBC WITH DIFFE RENTI AL/PL ATELE T lymphs (absolute) 1.8 x10e3 /uL 0.7-3. 1 normal Not Available [facility] ([facility]) [address] [place], [address], 03/22/2025 12:05:55 03/20/20 25 03/20/2025 CBC WITH DIFFE RENTI AL/PL ATELE T monocytes(ab solute) 0.5 x10e3 /uL 0.1-0. 9 normal Not Available [facility] ([facility]) [address] [place], [address], 03/22/2025 12:05:55 03/20/20 25 03/20/2025 CBC WITH DIFFE RENTI AL/PL ATELE T eos (absolute) 0.1 x10e3 /uL 0.0-0. 4 normal Not Available [facility] ([facility]) [address] [facility], [place], [address], 03/22/2025 12:05:55 03/20/20 25 03/20/2025 CBC WITH DIFFE RENTI AL/PL ATELE T baso (absolute) 0.1 x10e3 /uL 0.0-0. 2 normal Not Available [facility] ([facility]) [address] [facility], [place], [address], 03/22/2025 12:05:55 03/20/2003/20/2025 CBC WITH DIFFE RENTI AL/PL ATELE T immature granulocytes 0 % not estab. Not Available [facility] ([facility]) [address] [facility], [place], [address], 03/22/2025 12:05:55 03/20/20 25 03/20/2025 CBC WITH DIFFE RENTI AL/PL ATELE T immature grans (abs) 0.0 x10e3 /uL 0.0-0. 1 Not Available [facility] ([facility]) [address] [place], [address], 03/22/2025 12:05:55 03/20/20 25 03/20/2025 CBC WITH DIFFE RENTI AL/PL ATELE T NRBC PLANT CLERK Not Available [facility] ([facility]) [address] [facility], [place], [address], 03/22/2025 12:05:55 03/20/2003/20/2025 CBC WITH DIFFE RENTI AL/PL ATELE T hematology comments: PLANT CLERK Not Available [facility] ([facility]) [address] [place], [address], 03/22/2025 12:05:55 03/20/20 25 03/20/2025 UA/M W/RFL X CULTU RE, ROUTI NE specific gravity 1.020 1.005- 1.030 normal Not Available [facility] ([facility]) [address] [place], [address], 03/22/2025 12:05:56 03/20/20 25 03/20/2025 UA/M W/RFL X CULTU REVASU NE pH 6.0 5.0-7. 5 normal Not Available [facility] ([facility]) [address] [place], [address], 03/22/2025 12:05:56 03/20/20 25 03/20/2025 UA/M W/RFL X CULTU RE, ROUTI NE urine-color Yellow yellow Not Available [facility] ([facility]) [address] [place], [address], 03/22/2025 12:05:56 03/20/20 25 03/20/2025 UA/M W/RFL X CULTU RE ROUTI NE appearance Clear clear Not Available [facility] ([facility]) [address] [place], [address], 03/22/2025 12:05:56 03/20/20 25 03/20/2025 UA/M W/RFL X CULTU RE ROUTI NE WBC esterase Trace negati ve abnormal Not Available [facility] ([facility]) [address] [place], [address], 03/22/2025 12:05:56 03/20/20 25 03/20/2025 UA/M W/RFL X CULTU RE ROUTI NE protein 2+ negati ve/tra ce abnormal Not Available [facility] ([facility]) [address] [place], [address], 03/22/2025 12:05:56 03/20/20 25 03/20/2025 UA/M W/RFL X CULTU RE ROUTI NE glucose Negati ve negati ve Not Available [facility] ([facility]) [address] [place], [address], 03/22/2025 12:05:56 03/20/20 25 03/20/2025 UA/M W/RFL X CULTU RE ROUTI NE ketones Negati ve negati ve Not Available [facility] ([facility]) [address] [facility], [place], [address], 03/22/2025 12:05:56 03/20/20 25 03/20/2025 UA/M W/RFL X CULTU RE, ROUTI NE occult blood 1+ negati ve abnormal Not Available [facility] ([facility]) [address] [facility], [place], [address], 03/22/2025 12:05:56 03/20/20 25 03/20/2025 UA/M W/RFL X CULTU RE ROUTI NE bilirubin Negati ve negati ve Not Available [facility] ([facility]) [address] [facility], [place], [address], 03/22/2025 12:05:56 03/20/20 25 03/20/2025 UA/M W/RFL X CULTU RE, ROUTI NE urobilinogen ,semi-qn 0.2 mg/dL 0.2-1. 0 normal Not Available [facility] ([facility]) [address] [place], [address], 03/22/2025 12:05:56 03/20/20 25 03/20/2025 UA/M W/RFL X CULTU RE ROUTI NE nitrite, urine Negati ve negati ve Not Available [facility] ([facility]) [address] [place], [address], 03/22/2025 12:05:56 03/20/20 25 03/20/2025 UA/M W/RFL X CULTU RE, ROUTI NE microscopic examination See below: Micro scopi c was indic ated and was perfo rmed. Not Available [facility] ([facility]) [address] [facility], [place], [address], 03/22/2025 12:05:56 03/20/20 25 03/20/2025 UA/M W/RFL X CULTU RE, ROUTI NE microscopic examination PLANT CLERK Not Available [facility] ([facility]) [address] [facility], [place], [address], 03/22/2025 12:05:56 03/20/20 25 03/21/2025 UA/M W/RFL X CULTU RE, ROUTI NE WBC 11-30 /hpf 0 - 5 abnormal Not Available [facility] ([facility]) [address] [facility], [place], [address], 03/22/2025 12:05:56 03/20/20 25 03/21/2025 UA/M W/RFL X CULTU RE, ROUTI NE RBC 11-30 /hpf 0 - 2 abnormal Not Available [facility] ([facility]) [address] [facility], [place], [address], 03/22/2025 12:05:56 03/20/20 25 03/21/2025 UA/M W/RFL X CULTU RE, ROUTI NE epithelial cells (non renal) 0-10 /hpf 0 - 10 Not Available [facility] ([facility]) [address] [facility], [place], [address], 03/22/2025 12:05:56 03/20/20 25 03/21/2025 UA/M W/RFL X CULTU RE, ROUTI NE epithelial cells (renal) PLANT CLERK Not Available [facility] ([facility]) [address] [facility], [place], [address], 03/22/2025 12:05:56 03/20/20 25 03/21/2025 UA/M W/RFL X CULTU RE, ROUTI NE casts None seen /lpf none seen Not Available [facility] ([facility]) [address] [facility], [place], [address], 03/22/2025 12:05:56 03/20/20 25 03/21/2025 UA/M W/RFL X CULTU RE, ROUTI NE cast type PLANT CLERK Not Available [facility] ([facility]) [address] [facility], [place], [address], 03/22/2025 12:05:56 03/20/20 25 03/21/2025 UA/M W/RFL X CULTU RE, ROUTI NE crystals PLANT CLERK Not Available [facility] ([facility]) [address] [facility], [place], [address], 03/22/2025 12:05:56 03/20/20 25 03/21/2025 UA/M W/RFL X CULTU RE, ROUTI NE crystal type PLANT CLERK Not Available [facility] ([facility]) [address] [facility], [place], [address], 03/22/2025 12:05:56 03/20/20 25 03/21/2025 UA/M W/RFL X CULTU RE, ROUTI NE mucus threads PLANT CLERK Not Available [facility] ([facility]) [address] [facility], [place], [address], 03/22/2025 12:05:56 03/20/20 25 03/21/2025 UA/M W/RFL X CULTU RE, ROUTI NE bacteria None seen none seen/f ew Not Available [facility] ([facility]) [address] [facility], [place], [address], 03/22/2025 12:05:56 03/20/20 25 03/21/2025 UA/M W/RFL X CULTU RE, ROUTI NE yeast PLANT CLERK Not Available [facility] ([facility]) [address] [facility], [place], [address], 03/22/2025 12:05:56 03/20/20 25 03/21/2025 UA/M W/RFL X CULTU RE, ROUTI NE trichomonas PLANT CLERK Not Available [facility] ([facility]) [address] [facility], [place], [address], 03/22/2025 12:05:56 03/20/20 25 03/21/2025 UA/M W/RFL X CULTU RE, ROUTI NE comment PLANT CLERK Not Available [facility] ([facility]) [address] [facility], [place], [address], 03/22/2025 12:05:56 03/20/20 25 03/21/2025 UA/M W/RFL X CULTU RE, ROUTI NE urinalysis reflex Commen t This speci men has refle xed to a Urine Cultu re. Not Available [facility] ([facility]) [address] [place], [address], 03/22/2025 12:05:56 03/20/20 25 03/22/2025 UA/M W/RFL X CULTU RE, ROUTI NE urine culture, routine Final report Not Available [facility] ([facility]) [address] [facility], [place], [address], 03/22/2025 12:05:56 03/20/20 25 03/22/2025 UA/M W/RFL X CULTU RE, ROUTI NE result 1 COMMEN T Cultu re shows less than 10,00 0 colon y formi ng units of bacte terence per gustavo liter of urine . This colon y count is not gener ally consi dered to be clini nelly signi toma t. Not Available [facility] ([facility]) [address] [facility], [place], [address], 03/22/2025 12:05:56 03/20/20 25 03/21/2025 FSH AND LH LH 5.3 mIU/m L normal Adult Femal e Range Folli cular phase 2.4 - 12.6 Ovula tion phase 14.0 - 95.6 Lutea l phase 1.0 - 11.4 Postm enopa usal 7.7 - 58.5 Not Available [facility] ([facility]) [address] [place], [address], 03/22/2025 12:05:57 03/20/20 25 03/21/2025 FSH AND LH FSH 4.6 mIU/m L Adult Femal e Range Folli cular phase 3.5 - 12.5 Ovula tion phase 4.7 - 21.5 Lutea l phase 1.7 - 7.7 Postm enopa usal 25.8 - 134.8 Not Available [facility] ([facility]) [address] [place], [address], 03/22/2025 12:05:57 03/20/20 25 03/21/2025 ESR-W ES+CR P sedimentatio n rate-westerg joey 2 mm/HR 0-40 normal Not Available [facility] ([facility]) [address] [place], [address], 03/22/2025 12:05:57 03/20/20 25 03/21/2025 ESR-W ES+CR P C-reactive protein, quant 1 mg/L 0-10 normal Not Available [facility] ([facility]) [address] [place], [address], 03/22/2025 12:05:57 03/20/2003/21/2025 CREAT INE KINAS E,TOT AL creatine kinase,total 80 U/L 32-182 normal Not Available [facility] ([facility]) [address] [place], [address], 03/22/2025 12:05:58 03/20/20 25 03/21/2025 MAGNE SIUM magnesium 2.1 mg/dL 1.6-2. 3 normal Not Available [facility] ([facility]) [address] [place], [address], 03/22/2025 12:05:59 01/07/13 2307/07/2022 XR, cervi samantha spine No observ ation record ed. [facility] [address] [facility], [place], [address], 08/12/2022 23:00:10 09/07/19 24 09/06/2023 charlette RODRIGUES No observ ation record ed. [email or web address] [facility] [address], [place], [address], 09/07/2023 09:01:54 11/09/19 24 11/04/2023 DEXA, axial skele ton Name:Anusha soliz ID: [id number] Age:53 years Sex:Fe male Ethnic ity:Wh ite Date of : [birth year] Reason : osteop enia; Clinic al Questi on(s): Other: Referr ing Provid er:Delisa morfin Study: Dexa Bone Densit y (Axial ) Bone Densit y: Region BMD T-Scor e Z-Scor e Classi ficati on AP Spine 1.162 1.0 2.1 Normal TOTAL HIP 0.912 -0.2 0.4 Normal FEM NECK 0.823 -0.2 0.8 Normal 10-yea r Fractu re Risk: Fractu re Risk Not Report ed: FRAX not report ed becaus e: Premen opausa l woman All T-scor es for Spine Total, Hip Total, Femora l Neck at or above -1.0 Impres geri: The patien t has normal bone densit y as determ ined by WHO criter ia WSN: [id number] Orderi Physic sue: Valencia Harper ed By: Jigar Valdez MD Dictat ed Date/T panda: 2:01 pm Review ed By: Jigar Valdez MD Signed By: Jigar Valdez MD Signed Date/T panda: 2:01 pm Transc ribed By: JACKY Transc ribed Date/T panda: 2:01 pm Patien t Class: Outpat ient [facility] (Outpt Imaging) [address], [place], [address], 11/09/2023 16:48:43 03/29/2003/29/2025 CT, abdom en + pelvi s, [...] mGy*cm . COMPAR LOIDA: 2012 FINDIN GS: Non Acoustic Operator View Findin gs, Lines and Tubes: None. [...] acute intra- abdomi nal abnorm ality. WSN: [id number] Orderi ng Physic sue: Valencia Harper Dictat ed By: St Marleni juan MD, Pipo Page Dictat ed Date/T panda: 2:33 pm Review ed By: St Marleni juan MD, Pipo Page Signed By: Pipo Edge MD Signed Date/T panda: 2:33 pm Transc ribed By: JACKY Transc ribed Date/T panda: 2:24 pm Patien t Class: Outpat ient [facility] (Outpt Imaging) [address], [place], [address], 04/01/2025 17:29:24 04/02/2004/02/2025 US, leighton x, valentine s, liz portillo, compl ete No observ ation record ed. [email or web address] [facility] [address] [place], [address], 04/19/2025 10:13:19 04/23/20 25 04/22/2025 MRI, lumba r spine , w/o contr ast [facility]- [facility] Access ion Number : [id number] Patien t Name: Luca Mcclureniesha adame Record Number : [id number] Date of : 1970 Date of Exam: 2024 Referr ing Physic sue: Valencia Harper Associ ates [address] [facility] [address] [place] [address] Exam: MR Lumbar Spine (C-) CPT 43756 Room Descri ption: [place] GE Pion 3T MRI Lumbar Spine W/O [...] nced within the lower lumbar spine. WSN: [id number] Orderi ng Physic sue: Valencia Harper Electr onical ly Signed By: Fernando Castellanos DO ASHER [facility] ([facility]) [address] [place], [address], 04/23/2025 15:19:47 Result Notes Documentation Provider Name and Address Organization Details Recorded Time Dexa, Axial Skeleton : Name:ALECIA MCCLURE Age:53 years Sex:Female Ethnicity:White Date of :1970 Reason: osteopenia; Clinical Question(s): Other: Referring Provider:Valencia Hurst Study:Dexa Bone Density (Axial) Bone Density: Region BMD T-Score Z-Score Classification AP Spine 1.162 1.0 2.1 Normal TOTAL HIP 0.912 -0.2 0.4 Normal FEM NECK 0.823 -0.2 0.8 Normal 10-year Fracture Risk: Fracture Risk Not Reported: FRAX not reported because: Premenopausal woman All T-scores for Spine Total, Hip Total, Femoral Neck at or above -1.0 Impression: The patient has normal bone density as determined by WHO criteria WSN: [id number] Ordering Physician: Valencia Hurst Dictated By: Dameon Valdez MD Dictated Date/Time: 11/09/23 2:01 pm Reviewed By: Dameon Valdez MD Signed By: Dameon Valdez MD Signed Date/Time: 11/09/23 2:01 pm Transcribed By: JACKY Transcribed Date/Time: 11/09/23 2:01 pm Patient Class: Outpatient Valencia Hurst MD [address] [address], [place], [address], [facility] 11/09/2023 16:41:48 Ct, Abdomen + Pelvis, W/ Contrast : [...] DLP Body: 215 mGy*cm. COMPARISON: 06/11/2013 FINDINGS: Non Acoustic Operator View Findings, Lines and Tubes: None. Visualized [...] Moderate constipation. No acute intra-abdominal abnormality. WSN: [id number] Ordering Physician: Valencia Hurst Dictated By: Pipo Moreno MD Dictated Date/Time: 03/29/25 2:33 pm Reviewed By: Pipo Moreno MD Signed By: Pipo Moreno MD Signed Date/Time: 03/29/25 2:33 pm Transcribed By: JACKY Transcribed Date/Time: 03/29/25 2:24 pm Patient Class: Outpatient Valencia Hurst MD [address], [address], [facility] 04/01/2025 17:29:24 Mri, Lumbar Spine, W/o Contrast : [facility] Accession Number: [id number] Patient Name: Alecia Mcclure Date of : 1970 Date of Exam: 04-22-2025 Referring Physician: [facility] [address] [facility] [place] [address] Exam: MR Lumbar Spine (C-) CPT 67313 Room Description: [facility] 3T MRI Lumbar Spine W/O Contrast INDICATION: Radiculopathy, site unspecified TECHNIQUE: MRI of the lumbar spine was performed without intravenous contrast utilizing sagittal T1, sagittal T2, sagittal STIR, axial T1, and axial T2-weighted sequences. COMPARISON: None. FINDINGS: LOCALIZER: No additional findings on limited localizer images. NUMBERING: The study assumes 5 wqx-qki-qzpeyow lumbar type vertebral bodies. There is lumbarization of S1. ALIGNMENT, VERTEBRAE, MARROW, AND DISCS: Alignment is normal. Vertebral body heights are preserved. Small foci of T1 and T2 hyperintense signal within the L3, S3, and S4 vertebral bodies likely focal fatty deposits or hemangiomas. No suspicious bone marrow signal abnormality. Mild multilevel disc height loss with disc desiccation. CONUS: The conus is normal in signal and contour, with normal level of termination at L1. PARASPINAL TISSUES: The paraspinal soft tissues are unremarkable. DETAILED FINDINGS BY LEVEL: L1-L2: No significant canal stenosis or neural foraminal narrowing. L2-L3: Broad-based disc bulge with facet arthropathy and ligamentum flavum thickening. No significant canal stenosis or neural foraminal narrowing. L3-L4: Broad-based disc bulge with facet arthropathy and ligamentum flavum thickening contributing to mild spinal canal stenosis and mild bilateral neural foraminal stenosis. L4-L5: Broad-based disc bulge with facet arthropathy and ligamentum flavum thickening contributing to mild spinal canal stenosis. Mild to moderate left and mild right neural foraminal stenosis. Left facet joint effusion. L5-S1: Central disc protrusion superimposed on a broad-based disc bulge results in mild bilateral neural foraminal stenosis. No central canal stenosis. IMPRESSION: No acute findings within the lumbar spine. Mild to moderate degenerative changes as described above, most pronounced within the lower lumbar spine. WSN: [id number] Ordering Physician: Valencia Hurst Electronically Signed By: Fernando Malagon MD [address] [facility] [address], [place], [address], [facility] 04/23/2025 14:04:38 Problems Name Problem SNOMED Code Status Onset Date Resolution Date Notes Provider Name and Address Organization Details Recorded Time Conjunct ivitis 6561969 Completed 200802/28/2014 RESOLVED DATE: 11/27/19 09; RECORDED 11/27/19 09 9:11AM BY VALENCIA TOLENTINO MD, ANNOTATI ON/ADDEN DUM Arelis Little null, [facility] 6 14:14:50 Family history of ischemic heart disease [id number] Completed 200802/28/2014 RECORDED 11/27/19 09 9:11AM BY VALENCIA TOLENTINO MD, ANNOTATI ON/ADDEN DUM Arelis Little null, [facility] 6 14:14:50 Administ ration of bacteria l and viral vaccine Completed 200802/28/2014 RECORDED 11/27/19 09 9:05AM BY LORNA GR, OFFICE VISIT Arelis Little null, [facility] 6 14:14:50 Conjunct ivitis [id number] Completed 200803/01/2014 RESOLVED DATE: 11/27/19 09; RECORDED 11/27/19 09 9:11AM BY VALENCIA TOLENTINO MD, ANNOTATI ON/ADDEN DUM Arelis Little null, [facility] 6 14:14:50 Family history of ischemic heart disease [id number] Completed 200803/01/2014 RECORDED 11/27/19 09 9:11AM BY VALENCIA TOLENTINO MD, ANNOTATI ON/ADDEN DUM Arelis Little null, [facility] 6 14:14:50 Administ ration of bacteria l and viral vaccine Completed 200803/01/2014 RECORDED 11/27/19 09 9:05AM BY LORNA GR, OFFICE VISIT Arelis Little null, [facility] 6 14:14:50 Conjunct ivitis [id number] Completed 200802/05/2014 RESOLVED DATE: 11/27/19 09; RECORDED 11/27/19 09 9:11AM BY VALENCIA TOLENTINO MD, ANNOTATI ON/ADDEN DUM Arelis Little null, [facility] 6 14:14:50 Family history of ischemic heart disease [id number] Completed 200802/05/2014 RECORDED 11/27/19 09 9:11AM BY VALENCIA TOLENTINO MD, ANNOTATI ON/ADDEN DUM Arelis Little null, [facility] 14:14:50 Administ ration of bacteria l and viral vaccine Completed 200802/05/2014 RECORDED 11/27/19 09 9:05AM BY LORNA GR, OFFICE VISIT Areliscandace lynn, [facility] 6 14:14:50 Allergic rhinitis [id number] Completed 201102/28/2014 RECORDED 06/02/20 12 10:21AM BY JIGNA AUSTIN ON/ADDEN DUM Arelsi Little null, [facility] 6 14:14:50 Screenin g for malignan t neoplasm of breast Completed 201102/28/2014 RECORDED 06/02/20 12 10:21AM BY JIGNA AUSTIN ON/ADDEN DUM Arelis Little null, [facility] 14:14:50 Screenin g for malignan t neoplasm of cervix Completed 201102/28/2014 RECORDED 06/02/20 12 10:21AM BY JIGNA AUSTIN ON/ADDEN DUM Arelisshan Little null, [facility] 14:14:51 Insomnia [id number] Completed 201102/28/2014 RECORDED 06/02/20 12 10:21AM BY JIGNA AUSTIN ON/ADDEN DUM Valencia Hurst MD [address] [facility] [address], [place], [address] , [facility] 8 12:32:30 Vitamin D deficien cy [id number] Completed 201102/28/2014 RECORDED 06/02/20 12 10:21AM BY JIGNA AUSTIN ON/ADDEN DUM Arelis Little null, [facility] 6 14:14:50 Allergic rhinitis [id number] Completed 201103/01/2014 RECORDED 06/02/20 12 10:21AM BY MAXIMILIANO AUSTINATI ON/ADDEN DUM Arelis Little null, [facility] 6 14:14:50 Screenin g for malignan t neoplasm of breast Completed 201103/01/2014 RECORDED 06/02/20 12 10:21AM BY JIGNA AUSTIN ON/ADDEN DUM Arelis Little null, [facility] 6 14:14:51 Screenin g for malignan t neoplasm of cervix Completed 201103/01/2014 RECORDED 06/02/20 12 10:21AM BY MAXIMILIANO AUSTINATI ON/ADDEN DUM Arelis Little null, [facility] 6 14:14:51 Insomnia 741025865 Completed 201103/01/2014 RECORDED 06/02/20 12 10:21AM BY JIGNA AUSTIN ON/ADDEN DUM Valencia Hurst MD [address] [facility] [address], [place], [address] , [facility] 8 12:32:30 Vitamin D deficien cy 99623027 Completed 201103/01/2014 RECORDED 06/02/20 12 10:21AM BY JIGNA AUSTIN ON/ADDEN DUM Arelis Little null, [facility] 6 14:14:50 Allergic rhinitis 70552925 Completed 201102/05/2014 RECORDED 06/02/20 12 10:21AM BY MAXIMILIANO AUSTINATI ON/ADDEN DUM Arelis Little null, [facility] 6 14:14:50 Screenin g for malignan t neoplasm of breast Completed 201102/05/2014 RECORDED 06/02/20 12 10:21AM BY JIGNA AUSTIN ON/ADDEN DUM Arelis Little null, [facility] 6 14:14:50 Screenin g for malignan t neoplasm of cervix Completed 201102/05/2014 RECORDED 06/02/20 12 10:21AM BY JIGNA AUSTIN ON/ADDEN DUM Arelis Little null, [facility] 6 14:14:51 Insomnia 480003186 Completed 201102/05/2014 RECORDED 06/02/20 12 10:21AM BY JIGNA AUSTIN ON/ADDEN DUM Valencia Hurst MD [address] [facility] [address], [place], [address] , [facility] 8 12:32:30 Vitamin D deficien cy 70473382 Completed 201102/05/2014 RECORDED 06/02/20 12 10:21AM BY JIGNA AUSTIN ON/ADDEN DUM Arelis Little null, [facility] 6 14:14:50 Pain of hip region 32414030 Completed 201202/28/2014 RECORDED 11/08/19 13 9:51AM BY SARA KIM MA, ANNOTATI ON/ADDEN DUM Arelis Little null, [facility] 6 14:14:50 Influenz a vaccine needed 13484608702 06 Completed 201202/28/2014 RECORDED 11/08/19 13 8:59AM BY SARA KIM MA, JIGNA ON/ADDEN DUM Arelis Little null, [facility] 6 14:14:50 Adult health examinat ion Completed 201202/28/2014 RECORDED 11/08/19 13 8:59AM BY SARA KIM MA, ANNOTATI ON/ADDEN DUM Arelis Little null, [facility] 6 14:14:50 Pain of hip region 34519081 Completed 201203/01/2014 RECORDED 11/08/19 13 9:51AM BY SARA KIM MA, ANNOTATI ON/ADDEN DUM Arelis Little null, [facility] 6 14:14:50 Influenz a vaccine needed 56887010686 06 Completed 201203/01/2014 RECORDED 11/08/19 13 8:59AM BY SARA KIM MA, ANNOTATI ON/ADDEN DUM Arelis Little null, [facility] 6 14:14:50 Adult health examinat ion Completed 201203/01/2014 RECORDED 11/08/19 13 8:59AM BY SARA KIM MA, ANNOTATI ON/ADDEN DUM Arelis Little null, [facility] 6 14:14:50 Pain of hip region 61959608 Completed 201202/05/2014 RECORDED 11/08/19 13 9:51AM BY SARA KIM MA, ANNOTATI ON/ADDEN DUM Arelis Little null, [facility] 6 14:14:50 Influenz a vaccine needed 56986317306 06 Completed 201202/05/2014 RECORDED 11/08/19 13 8:59AM BY SARA KIM MA, ANNOTATI ON/ADDEN DUM Arelis Little null, [facility] 6 14:14:50 Adult health examinat ion Completed 201202/05/2014 RECORDED 11/08/19 13 8:59AM BY SARA KIM MA, ANNOTATI ON/ADDEN DUM Arelis Little null, [facility] 6 14:14:50 Patient status finding [id number] Completed 201202/28/2014 RECORDED 03/22/20 13 9:13AM BY MAXIMILIANO SOUSAATI ON/ADDEN DUM Arelis Little null, [facility] 6 14:14:50 Acute upper respirat ory infectio n 64675012 Completed 201202/28/2014 IMPRESSI ON: RAPID STREP NEGATIVE , C/W VIRAL INFECTIO N, RECOMMEN D SUPPORTI VE TREATMEN T.; RECORDED 03/22/20 13 9:13AM BY JAMIA WINKLER I ANNOTATI ON/ADDEN DUM Arelis Little null, [facility] 6 14:14:50 Patient status finding [id number] Completed 201203/01/2014 RECORDED 03/22/20 13 9:13AM BY JAMIA WINKLER I ANNOTATI ON/ADDEN DUM Arelis Little null, [facility] 6 14:14:50 Acute upper respirat ory infectio n 01653930 Completed 201203/01/2014 IMPRESSI ON: RAPID STREP NEGATIVE , C/W VIRAL INFECTIO N, RECOMMEN D SUPPORTI VE TREATMEN T.; RECORDED 03/22/20 13 9:13AM BY JAMIA WINKLER I ANNOTATI ON/ADDEN DUM Arelis Little null, [facility] 6 14:14:50 Anemia 509188134 Active 2012 Jamia lynn [facility] 8 11:27:44 Family history of Cardiova scular disease 529931015 Active 2012 Jamia lynn [facility] 8 11:27:44 Disorder of trunk Completed 201210/18/2017 SEEN AT [facility] JULY 2012; RECORDED 03/22/20 13 9:13AM BY JAMIA WINKLER I, OFFICE VISIT Valencia Hurst MD [address] [address], [place], [address] , [facility] 8 11:45:49 Patient status finding [id number] Completed 201202/05/2014 RECORDED 03/22/20 13 9:13AM BY JIGNA SOUSA ON/ADDEN DUM Arelis lynn [facility] 6 14:14:50 Acute upper respirat ory infectio n 14632954 Completed 201202/05/2014 IMPRESSI ON: RAPID STREP NEGATIVE , C/W VIRAL INFECTIO N, RECOMMEN D SUPPORTI VE TREATMEN T.; RECORDED 03/22/20 13 9:13AM BY JIGNA SOUSA ON/ADDEN DUM Arelis lynn [facility] 6 14:14:50 Screenin g for malignan t neoplasm of cervix Active 2013 Jamia lynn [facility] 8 11:27:44 Benign neoplasm of skin 15001147 Active 2013 STORY: FOLLOWED BY PETERSON DERM; RECORDED 10/17/19 14 8:30AM BY VIJAY LITTLE, HISTORIC AL SUMMARY Jamia lynn [facility] 8 11:27:44 Screenin g for malignan t neoplasm of breast Active 2013 Jamia lynn [facility] 8 11:27:44 Venous insuffic iency of lower limb 466781563 Active 2016 Procedur es done by Dr Matos No treatmen t availabl e besides compress ion. Valencia Hurst MD [address], [place], [address] , [facility] 3 17:07:52 Gilbert' s syndrome 73532993 Active 2016 Jamia lynn [facility] 8 11:27:44 Pain in lower limb 36190263 Active 2017 Valencia Hurst MD [address], [place], [address] , [facility] 8 12:31:21 Insomnia 297904960 Active 2017 Valencia Hurst MD [address] [facility] [address], [place], [address] , [facility] 8 12:32:30 Calcific ation of breast 597571334 Active 2017 Left; bx schedule d. Normal. Valencia Hurst MD [address] [facility] [address], [place], [address] , [facility] 8 15:41:16 Pain of right ankle joint 90737601501 496961 Active 2017 Seen at [facility]. Impingem ent; received injectio n and PT. Valencia Hurst MD [address] [address], [place], [address] , [facility] 9 08:35:05 Osteoart hrosis of the carpomet acarpal joint of the thumb 21655406 Active 2020 Bilrina stoll Seen by Dr Farfan. 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 Valencia Hurst MD [address], [place], [address] , [facility] 3 08:49:50 Left Achilles tendinit is 89590508563 9102 Active 2022 Seeing podiatry Alie romero shock wave therapy. Valencia Hurst MD [address], [place], [address] , [facility] 3 08:33:44 Albuminu terence 436910678 Completed 202206/08/2023 Angelo Diego MD [address], [place], [address] , [facility] 3 13:19:01 Pain of left shoulder region Active 2022 Seen at [facility] and injected . Impingem ent syndrome . Schedule d for arthrosc opic surgery 2024. Valencia Hurst MD [address] [facility] [address], [place], [address] , [facility] 5 14:27:52 Problem Notes None recorded. Procedures Surgical History Date Name Laterality Status Provider Name and Address Organization Details Recorded Time 05/29/20 24 Whit arthrs srg decompression completed Anita Edwards [facility] 12/10/2024 08:28:23 09/06/19 24 Ultrasound breast limited completed Anita Edwards [facility] 09/07/2023 09:01:40 06/27/20 23 Date of Last Pap Smear completed Anita Edwards [facility] 10/13/2023 08:59:50 06/27/20 23 shoulder injection completed Anita Edwards [facility] 06/29/2023 08:46:54 09/09/19 22 Most Recent Mammogram completed Arelis Little [facility] 09/10/2021 15:54:22 09/09/19 22 Mammogram Diagnostic Bilateral completed Arelis Little [facility] 09/10/2021 15:54:17 04/10/20 21 Date of Last Colonoscopy completed Areliscandace Little [facility] 04/22/2021 14:00:13 04/10/20 21 Colonoscopy completed Areliscandace Little [facility] 04/22/2021 13:58:23 04/25/20 18 Breast Surgery completed Jamia Ansari [facility] 02/22/2019 09:02:53 04/25/20 18 Breast Biopsy completed Jamia Ansari [facility] 02/22/2019 09:02:53 03/17/20 18 Mammogram one breast completed [address] Money [facility] 03/20/2018 09:25:13 10/02/19 17 Phleb veins - extrem 20+ completed Alia Turcios [facility] 10/04/2016 16:23:13 12/04/19 16 Mammogram Diagnostic Unilateral completed Areliscandace Little [facility] 12/05/2015 08:50:20 12/16/19 04 Caesarean Section completed Jamia Ansari [facility] 10/18/2017 11:34:05 Imaging Results None recorded. Procedure Notes None recorded. Medical Equipment None Reported. Allergies Allergen ID Allergen Name Allergen Category Reaction Reaction Severity Criticality Documentation Date Start Date Code Code System Note Provider Name and Address Organization Details Recorded Time 2390 house dust allergeni c extract environme nt,medica tion Not available Not available Not available 02/05/20142012 16078 9 RxNorm COMME NT: RECOR DED 03/22 9:13A M BY SHAKIRA BUCKLEY VISIT ; Not Available [facility] 4 13:20:23 2391 Grass Pollen environme nt,medica tion Not available Not available Not available 02/05/20142012 COMME NT: RECOR DED 03/22 9:13A M BY JAMIA GOODMAN OFFIC E VISIT ; Not Available [facility] 4 13:20:23 2392 Tree Pollen medicatio n Not available Not available Not available 02/05/20142012 COMME NT: RECOR DED 03/22 9:13A M BY JAMIA GOODMAN OFFIC E VISIT ; Not Available [facility] 4 13:20:23 Medications Name Sig Start Date [...] 03/23 completed RECORDED 03/23/20 10 9:10AM BY JIGNA LEVI ON/HARVEY HOLLY; Not Available Not Available Not [...] 09 11:54AM BY ALIA TURCIOS, MEDICATI ON AUTO-MADAI CTIVATIO N; Not Available [...] Available Not Available Not Available Nasacort 1 [place] each nostril daily 2021 active Not Available [...] Not Available Not Available Not Available Fluvirin 3943-9866 (PF) 45 mcg(15 mcg x3)/0.5 mL intramusc [...] and Address Organization Details Last Updated DateTime 3 164.47 cm 18.1 kg/m2 24702.9 8 g 62 /min 100 % 100 % 97.9 [degF] 127/83 mm[Hg] Ashleigh Payton MA [facility] 3 10:37:23 Date Recorded Body height Body mass index (BMI) Body weight Heart rate Oxygen saturation Oxygen saturation in Arterial blood by Pulse oximetry Body temperature Systolic And Diastolic Provider Name and Address Organization Details Last Updated DateTime 4 164.47 cm 18.3 kg/m2 44016.5 7 g 61 /min 98 % 98 % 98 [degF] 136/90 mm[Hg] Adrienne Levin MA [facility] 4 09:15:45 Date Recorded Body height Body mass index (BMI) Body weight Heart rate Oxygen saturation Oxygen saturation in Arterial blood by Pulse oximetry Body temperature Systolic And Diastolic Provider Name and Address Organization Details Last Updated DateTime 5 164.47 cm 17.3 kg/m2 01571.0 1 g 68 /min 98 % 98 % 97.9 [degF] 145/90 mm[Hg] Adrienne Levin MA [facility] 5 09:11:16 Date Recorded Body height Body mass index (BMI) Body weight Heart rate Oxygen saturation Oxygen saturation in Arterial blood by Pulse oximetry Body temperature Systolic And Diastolic Provider Name and Address Organization Details Last Updated DateTime 5 164.47 cm 17.4 kg/m2 05871.6 1 g 65 /min 100 % 100 % 98.2 [degF] 121/83 mm[Hg] Adrienne Levin MA [facility] 5 15:30:03 Date Recorded Body height Provider Name an d Address Organization Details Last Updated DateTime 06/03/2023 164.47 cm Siena Sewell LPN [facility] 06/03/2023 14:18:23 Social History Question Answer Notes LastModified by Organizat ion Details LastModified Time Tobacco Smoking Status Never Smoker Not Available [facility] 05/27/2020 03:36:36 Do You Have An Advance Directive? [email or web address] Information not available 08/25/2022 Is Blood Transfusion Acceptable In An Emergency? Yes [id number] Information not available 05/27/2020 What Is Your Level Of Caffeine Consumption? Moderate 2 Cup Of Coffee Daily Information not available 08/25/2022 How Much Tobacco Do You Chew? None [id number] Information not available 05/27/2020 What Type Of Diet Are You Following? REGULAR [id number] Information not available 05/27/2020 Which Illicit Or Recreational Drugs Have You Used? None [id number] Information not available 05/27/2020 Live Alone Or With Others? With Others Information not available 12/07/2024 Do You Take Precautions To Prevent Distracted Driving? Yes [email or web address] Information not available 10/11/2016 How Often Do You Need To Have Someone Help You When You Read Instructions, Pamphlets, Or Other Written Material From Your Doctor Or Pharmacy? Never [email or web address] Information not available 10/11/2016 Have You Served In The ? No [email or web address] Information not available 10/11/2016 To The Best Of Your Knowledge Have You Been In Close Proximity To Any Individual Who Tested Positive For COVID-19? No [email or web address] Information not available 06/25/2020 What Was The Date Of Your Most Recent Tobacco Screening? 12/06/2024 [email or web address] Information not available 12/06/2024 How Many Children Do You Have? 1 Son In His Final Year At [employer], Graduating 2025. Information not available 12/07/2024 Do You Use Protection During Sex? No [id number] Information not available 05/27/2020 Do You Use Your Seat Belt Or Car Seat Routinely? Yes Information not available 08/03/2021 Seat Belts Used Routinely Yes Information not available 08/25/2022 Are You Sexually Active? Yes [id number] Information not available 05/27/2020 Smoke Alarm In Home Yes Information not available 08/25/2022 Do You Have Smoke And Carbon Monoxide Detectors In Your Home? Yes Information not available 08/03/2021 Are You Passively Exposed To Smoke? No [email or web address] Information not available 10/11/2016 How Much Tobacco Do You Smoke? No [email or web address] Information not available 06/25/2020 Do You Use Sunscreen Routinely? Yes [id number] Information not available 05/27/2020 Sex: Unknown Functional [...] used smokeless tobacco? Never used smokeless tobacco [id number] Information not available 05/27/2020 Are you currently employed? Yes [id number] Information not available 05/27/2020 Are you able to walk independently without assistance or assistive devices? [email or web address] Information not available 08/25/2022 Are you able to care for yourself independently? 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 Information not available 08/25/2022 Do you or have you ever used e-cigarettes or vape? Never used electronic cigarettes Information not available 08/25/2022 What is your exercise level? Moderate [id number] Information not available 05/27/2020 Mental Status None recorded. Family History Relationship Description Onset Age of this Age Resolved Age Notes LastModified by Organization Details LastModified Time Mother Kidney disease [email or web address] Not available 2019 12:59:22 Mother Disorder of thyroid gland [email or web address] Not available 2019 12:59:22 Mother Hypertensive disorder [email or web address] Not available 2019 12:59:22 Mother Arthritis Not availabl e 06/25/2020 12:59:22 Mother Hypercholest [...] influenza, unspecified formulation 7 completed Not Available [facility] 06/03/2023 13:47:25 Influenza, split virus, trivalent, PF 7 completed EST[place] Sanchez [facility] 06/23/2022 15:41:36 Influenza, split virus, quadrivalent, preservative 0 [facility] 11:05:11 Influenza, split virus, trivalent, preservative 4 [facility] 11:05:11 Influenza, split virus, quadrivalent, preservative 6 [facility] 11:05:11 COVID-19, mRNA, LNP-S, PF, 10 mcg/0.2 mL dose, heidi-sucrose 1 [facility] 11:05:11 COVID-19, mRNA, LNP-S, PF, 30 mcg/0.3 mL dose 1 [facility] 11:05:11 Influenza, split virus, quadrivalent, preservative 8 completed ESTHER Sanchez, [facility] 08/03/2021 11:05:11 COVID-19, mRNA, LNP-S, PF, 30 mcg/0.3 mL dose 1 completed ESTHER Snachez, [facility] 08/03/2021 11:05:11 Influenza, MDCK, quadrivalent, PF 9 completed ESTHER Sanchez, [facility] 08/03/2021 11:05:11 Influenza, split virus, quadrivalent, PF 1 completed ESTHER Sanchez, [facility] 08/03/2021 11:05:11 Tdap 9 completed Jamia lynn [facility] 10/18/2017 11:27:44 Influenza, split virus, trivalent, preservative 2 completed Jamia lynn [facility] 10/18/2017 11:27:44 Td (adult), 2 Lf tetanus toxoid, preservative free, adsorbed 9 completed Not Available [facility] 08/11/2019 02:21:30 Past Encounters Encounter ID Performer Location Encounter Start Date Encounter Closed Date Diagnosis/Indication Diagnosis SNOMED-CT Code Diagnosis ICD10 Code Diagnosis IMO Codes Diagnosis Note [id number] autoEComm erce [address] [facility] [place] [address] 11/23/2007 00:00:00 [id number] autoEComm erce [address] [facility] [place] [address] 11/26/2008 00:00:00 [id number] autoEComm erce [address] [facility] [place] [address] 03/31/2010 00:00:00 [id number] autoEComm erce [address] [facility] [place] [address] 06/02/2012 00:00:00 [id number] autoEComm erce [address] [facility] [place] [address] 11/07/2012 00:00:00 [id number] autoEComm erce [address] [facility] [place] [address] 03/22/2013 00:00:00 [id number] Valencia Hurst MD Main Office [address] [facility] [address] [place] [address] 10/11/2016 13:02:02 10/11/2016 14:04:32 Adult health examination 095316547 Z00.00 UTD with immunizati ons and [facility] SKIVER care. Not yet due for a colonoscop y. Continue exercising . Venous ins ufficiency of lower limb 624441084 I87.2 Continue to follow with Dr Matos Insomnia 829434732 G47.0 0 Will alternate with ambien and neurontin for sleep. [id number] Valencia Hurst MD Main Office [address] [address] [place] [address] 10/18/2017 11:25:48 10/18/2017 12:01:57 Adult health examination 822288677 Z00.00 UTD with immunizati ons and [employer]ERS SKIVER care. Not yet due for a colonoscop y. Continue exercising . Anemia 864762842 D64.9 No clear etiology. Taking iron supplement s. Pain in lower limb 58811 [address] Pandya and helped by gabapentin . Insomnia 258207730 G47.0 0 Will alternate with ambien and neurontin for sleep. [id number] Valencia Hurst MD Main Office [address] [address] [place] [address] 02/22/2019 08:58:45 02/22/2019 10:01:59 Adult health examination 594284157 Z00.00 We will update her immunizati ons. Due for a colonoscop y. Continue exercising . Requires a tetanus booster 244338898 Z23 Screening for malignant neoplasm of colon 294708018 Z12.11 [id number] Valencia Hurst MD Main Office [address] [address] [place] [address] 06/25/2020 12:55:12 06/25/2020 14:07:48 Adult health examination 845535799 Z00.00 We will update her immunizati ons. Due for a colonoscop y. Continue exercising . Screening for malignant neoplasm of colon 194699667 Z12.11 Varicella vaccination 68 527619 Z23 Insomnia 133933542 G47.0 0 Will alternate with ambien and neurontin for sleep. May increase the neurontin to 600 mg at bedtime. Pain of le ft shoulder joint 0614214859 9889268 M25.512 [id number] Valencia Hurst MD Main Office [address] [facility] [address] [place] [address] 08/03/2021 11:00:50 08/03/2021 12:08:55 Adult health examination 470935667 Z00.00 She is UTD with immunizati ons including COVID and booster except she is due for a shingles which she will get at her pharmacy. Continue exercising . Insomnia 454257270 G47.0 0 Continues to be problem despite gabapentin and zolpidem. Hepatitis C screening 41 1031615 Z11.59 Venous ins ufficiency of lower limb 818056333 I87.2 Continue to follow with Dr Matos [id number] Valencia Hurst MD Main Office [address] [address] [place] [address] 10/14/2021 10:30:13 10/14/2021 11:18:19 Numbness of face 500426228 R20.0 No evidence for Mueller's palsy or sinus infection. Also doubt TMJ or trigeminal neuralgia. Decreased hearing to higher frequencie s on the left. [id number] Balwinder Noel MD [facility] [address] [facility] [address] [place] [address] 11/13/2021 09:03:51 11/13/2021 14:59:53 Sudden sensorineural hearing loss 399779041 H90.5 [id number] Valencia Hurst MD Main Office [address] [address] [place] [address] 06/23/2022 07:58:44 06/28/2022 16:00:24 Insomnia 550508681 G47.00 Continues to be problem despite gabapentin and zolpidem. Restless l egs syndrome 05239672 G25.81 Followed by neurology and has improvemen t on gabapentin . Pruritic disorder 653618 002 L29.9 Unclear etiology. Pain of mu ltiple joints 41662831 M25.50 [id number] Valencia Hurst MD Main Office [address] [facility] [address] [place] [address] 08/25/2022 10:26:39 08/25/2022 11:24:49 Adult health examination 064807181 Z00.00 She is UTD with immunizati ons including COVID and booster except she is due for a shingles which she will get at her pharmacy. Continue exercising . Venous ins ufficiency of lower limb 391978411 I87.2 Will do a referral to vascular. Seen by Dr Ramirez in the past Insomnia 598251166 G47.0 0 Continues to be problem despite gabapentin and zolpidem. Sj gren's syndrome [id number] M35.00 Sjogren's antibodies were negative. Will send a message to Dr Reece to see if a salivary gland bx would be helpful. [id number] Angelo Diego MD Telehealt h [address] [facility] [address] [place] [address] 06/03/2023 13:46:16 06/03/2023 15:29:42 Dysuria [id number] R30.0 Sound like uncomplica mary cystitis. Will cover as such while waiting for urine testing to post. Will modify regimen accordingl y based on culture result. Blood in urine [id number] R31.9 Likely from UTI but if persistent or no infection identified will need further assesssmen t. [id number] Valencia Hurst MD Main Office [address] [facility] [address] [place] [address] 10/12/2023 09:03:43 10/12/2023 09:56:59 Adult health examination [id number] Z00.00 She is UTD with immunizati ons including COVID and one booster but has not had any further boosters since June 2021. She is due for a shingles which she will get at her pharmacy. Continue exercising . Osteopenia 200518980 M85 .80 Diagnosed years ago. Not currently on meds. Has not yet gone through menopause. Hyperlipidemia 50425920 E78.5 Mildly elevated secondary to high HDL. Pain of mu ltiple joints 47475956 M25.50 Seen by rheum, Dr Reece with no clear etiology. Sj gren's syndrome 38857583 M35.00 Sjogren's antibodies were negative. Will send a message to Dr Reece to see if a salivary gland bx would be helpful. [id number] Valencia Hurst MD Main Office [address] [facility] [place] [phone] 12/06/2024 09:02:58 12/06/2024 10:14:05 Adult health examination [id number] Z00.00 She is UTD with immunizati ons including COVID and one booster but has not had any further boosters since June 2021.She is due for a shingles which she will get at her pharmacy.C ontinue exercising .She is due for [facility] exam and mammogram and will schedule. Neuropathy [id number] G62 .9 LE's since at least 2017. Insomnia 449858502 G47.0 0 Continues to be problem despite gabapentin and zolpidem. Sj gren's syndrome 91636905 M35.00 Sjogren's antibodies were negative. Seen by Dr Reece who feels that this is her dx despite the normal labs. A salivary gland bx was considered but felt that it was not necessary since it wouldn't change mgmt. Pain of le ft shoulder joint [id number] M25.512 [id number] Had surgery done by Dr Barcenas 05/29/24 for impingemen t syndrome. She has not had any improvemen t in her pain. She has identified an orthopedic surgeon in [place], Dr Farhat Christopher and would like a referral for a second opinion. Tenosynovi tis of right radial styloid [id number] 3455250 M65.4 [id number] Pure hypercholesterolemia 575840283 E78.00 [id number] Not currently on meds since her last 10-year risk was of heart disease or stroke was only 2%. [id number] Valencia Hurst MD Main Office [address] [place] [address] 03/19/2025 15:06:16 03/19/2025 16:05:05 Muscle pain 19522303 M79.10 [id number] Lower abdominal pain 545 63867 R10.30 [id number] Health Concerns Section Related Observation LastModified by Organization Detai ls LastModified Time None Recorded Concern Status LastModified by Organization Details LastModified Time None Recorded Advance Directives Directive Y: Payers Insurance Date Sequence Insurance Name Policy Number Policy Delarosa Covered Member ID Delarosa Member ID Guarantor Name 04/17/2025 1 [facility] (PPO) [id number] Ivan Mcclure [id number] Alecia Mcclure 06/25/2020 1 [facility] (HMO) [id number] Ivan Mcclure [id number] Alecia Mcclure 06/25/2020 1 [employer] (PPO) [id number] Ivan Mcclure [id number] Alecia Mcclure 10/17/2017 1 [facility] (PPO) [id number] Ivan Ren [id number] Alecia Mcclure Notes Date Note Type Note Provider Name and Address Organization Details Recorded Time 3 text/html Generic HPI TemplateReported by PatientHer symptoms of dry eyes persist and she uses frequent lubrication. She was seen by rheum, Dr Reece who felt that this may be related to Sjogrens although the antibody tests were negative. She does not have a f/u with him and no meds were prescribed. She also has numbness at the left side of her face which may be related. Also had pruritis that resolved after blood transfusions because of low ferritin. These were ordered by neurology.ROS as noted in the HPI Valencia Hurst MD [address], [address], [facility] 08/26/2022 17:42:41 3 text/html Urinary FrequencyReported by PatientHPIFor associated symptoms, patient reportsabdominal pain,constipation,pain during urination,blood in the urine,urine odor, andfeelings of urgencybut reportsno back pain,no chills,no nausea,no vomiting, andno incontinence. For severity, patient reportsmoderate. For onset/timing, patient reportsintermittent episodes lasting:andrecurring.On Juliocesar had dysuria (yqlswlpm25 days ago) that seems to improve with increased fluid intake until yesterday when she experienced bloating, and frequency as well as new hematuria. No history of frequent or resistant UTI's. Mild constipation reported as well. Angelo Diego MD [address] [facility] [address], [place], [phone], [facility] 06/03/2023 15:38:04 4 text/html Generic HPI TemplateReported by PatientHer symptoms of dry eyes persist and she uses frequent lubrication. She was seen by rheumDr Reece who felt that this may be related to Sjogrens although the antibody tests were negative. She does not have a f/u with him and no meds were prescribed. She also has numbness at the left side of her face which may be related. Also had pruritis that resolved after blood transfusions because of low ferritin. These were ordered by neurology.ROS as noted in the HPI Valencia Hurst MD [address] [facility] [address], [place], [address], [facility] 10/12/2023 14:56:40 5 text/html Generic HPI TemplateReported by PatientHer symptoms of dry eyes persist and she uses frequent lubrication. She was seen by rheumDr Reece who felt that this may be related to Sjogrens although the antibody tests were negative. He feels that a bx is not necessary because her symptoms are c/w this and it would not change the mgmt.Left shoulder pain has persisted despite surgery done by Dr Barcenas 05/29/24 for impingement syndrome. She is looking for a referral to another orthopedic surgeon for a second opinion.UTD COVID initial series and one booster.UTD with [facility] care, mammogram and colonoscopy.ROS as noted in the HPI Valencia Hurst MD [address] [facility] [address], [place], [address], [facility] 12/09/2024 17:02:58 5 text/html ROS as noted in the HPI [...] seem to be changing. She called her [facility] was given an appointment for more than 5 months from now and told to call her PCP. Valencia Hurst MD [address] [address], [place], [address], [facility] 04/20/2025 17:12:10 OBGyn Episode No OBEpisode recorded.
== END 2025-06-10 08:26 | disposition home or self-care (01) ==
LOC: HO.HSMS 07:21
PROVIDERS: PCP Internal Medicine; Visit Provider Psychiatry & Neurology Neurology
DX: M79.604 Pain in right leg (principal); M79.605 Pain in left leg; G47.00 Insomnia, unspecified; G47.61 Periodic limb movement disorder; G25.81 Restless legs syndrome
CPT/HCPCS: 99214; G2211